=== PATIENT | female | born 1960 | race Caucasian/White ===

== ENCOUNTER → 2022-09-27 14:58 | Outpatient (CLI) | payer OTHER, SELFPAY ==
--- NOTE | 2022-09-27 15:09 | DI.CT.S_ITS ---
PROCEDURE: CT LUMBAR SPINE WO CON INDICATIONS: Spinal stenosis, lumbar region with neurogenic claudication TECHNIQUE: Noncontrast 3 mm thick sections acquired from the T12 level to the sacrum. Sagittal and coronal reformats were constructed. For radiation dose reduction, the following was used: automated exposure control. COMPARISON: None. FINDINGS: Image quality: Excellent. Bones: There is mild leftward curvature of lumbar spine with apex at L2-3 level. No acute vertebral body compression fractures. No suspicious lytic or blastic bony lesions. No pars defects. T12-L1: Loss of disc height and degenerative endplate changes are seen with vacuum disc phenomenon. Small dorsal disc osteophyte complex formation and bilateral facet arthrosis is noted with mild central canal stenosis, no significant neural foraminal narrowing. L1-L2: Loss of disc height and degenerative endplate changes are seen. Dorsal disc osteophyte complex formation and bilateral facet arthrosis is noted causing mild central canal stenosis and left worse than right bilateral neural foraminal narrowing. L2-L3: Loss of disc height, degenerative endplate changes and vacuum disc phenomenon is seen. Dorsal disc osteophyte complex formation and bilateral facet arthrosis with hypertrophy of ligamentum flavum causing [id number] central canal stenosis and right worse than left bilateral neural foraminal narrowing. L3-L4: Loss of disc height and degenerative endplate changes are seen with vacuum disc phenomenon. Dorsal disc osteophyte complex formation and bilateral facet arthrosis is seen with hypertrophy of ligamentum flavum causing moderate central canal stenosis and bilateral neural foraminal narrowing worse on the right side. L4-L5: Degenerative endplate changes are seen. Broad-based disc bulge and bilateral facet arthrosis is seen with hypertrophy of ligamentum flavum causing moderate central canal stenosis and bilateral neural foraminal narrowing. L5-S1: Mild degenerative endplate changes are noted. Broad-based disc bulge and bilateral facet arthrosis is seen. No significant canal stenosis or neural foraminal narrowing. Soft tissues: No retroperitoneal masses or hematomas. Visualized aorta is normal in caliber. IMPRESSION: 1. Mild levoscoliosis centered at L2-3 level. No acute compression fracture or spondylolisthesis. No suspicious bony lesions. 2. Degenerative disc disease and bilateral facet arthrosis throughout lumbar spine causing various degrees of central canal stenosis and bilateral neural foraminal narrowing as described above. Dictated by: Jose Rivera M.D. on 09/27/2022 at 16:59 Approved by: Jose Rivera M.D. on 09/27/2022 at 17:08
== END ==
PROVIDERS: PCP Family Medicine; Referring Provider Orthopaedic Surgery Orthopaedic Surgery of the Spine; Visit Provider Orthopaedic Surgery Orthopaedic Surgery of the Spine
DX: M48.062 Spinal stenosis, lumbar region with neurogenic claudication (principal); M51.36 Other intervertebral disc degeneration, lumbar region; M51.37 Other intervertebral disc degeneration, lumbosacral region; M47.816 Spondylosis without myelopathy or radiculopathy, lumbar region; M47.817 Spondylosis without myelopathy or radiculopathy, lumbosacral region; M41.9 Scoliosis, unspecified
CPT/HCPCS: 72131

== ENCOUNTER 2022-12-04 07:40 | Inpatient (IN) | payer OTHER, SELFPAY ==
[2022-11-29 11:48] VITALS: BMI 39.0
[2022-12-04] VITALS (13 sets, daily range): BP systolic 105–136; BP diastolic 57–82; PULSE 62–84; RESP 10–20; TEMP 35.9–36.5; O2SAT 89–99; BMI 39.0
[2022-12-04] MEDS: LACTATED RINGERS 1,000 ML 42 ML IV ×2 (08:24→10:49)
[2022-12-04] MEDS: ACETAMINOPHEN 325 MG TABLET 975 MG PO (08:25)
[2022-12-04] MEDS: VANCOMYCIN 1,000 MG/200 ML PIGGYBACK 200 MG IV ×2 (08:34→20:07)
--- NOTE | 2022-12-04 08:56 | PM.PREOP ---
Pre-operative Note Interval Note History & Physical reviewed/Exam performed by Physician: Yes Changes to H&P: No
--- NOTE | 2022-12-04 09:40 | SUR.OPER ---
Room was prepared for surgery and patient had interview with Dr. Giron. I notified Dr. Giron about H&P since it didn't indicate the levels and
--- NOTE | 2022-12-04 09:52 | SUR.OPER ---
Prone on spine table, head in foam head support, padded chest and pelvic supports, gel pad at knees, lower legs supported by pillows; nipples, genitalia and toes free of pressure, arms secured on foam padded arm boards at <90 degrees abduction. Tape over blanket at thigh secured to table.
[2022-12-04] MEDS: BUPIVACAINE LIPOSOME 266 MG/20 ML VIAL INJ (10:48)
[2022-12-04] MEDS: BUPIVACAINE 0.25% (PF) 60 ML, EPINEPHrine 0.15 MG INJ (10:49)
--- NOTE | 2022-12-04 11:00 | SUR.OPER ---
This morning, patient spoke with Dr. Giron and signed consent paperwork for surgery. I discussed with Dr. Giron that the H&P (while up to date) did not include levels indicated for surgery. His most recent H&P also stated the patient was uncertain if this surgery would happen. He has been made aware and stated that he intends to leave the H&P on 11/19 as the appropriate documentation for the surgery on 12/04/2022.
--- NOTE | 2022-12-04 12:00 | DI.RAD.S_ITS ---
PROCEDURE: XR LUMBAR SPINE 2-3V INDICATIONS: L3-4, L4-5 TLIF ROWBOT TECHNIQUE: Low resolution intraoperative fluoroscopic spot films were obtained COMPARISON: None. FINDINGS: Three low resolution intraoperative fluoroscopic spot films were obtained during L3-4 and L4-5 discectomy and fusion with posterior roosevelt and screw instrumentation. IMPRESSION: Fluoroscopic guidance Approved by: Saravanan Gregorio M.D. on 12/04/2022 at 18:09
--- NOTE | 2022-12-04 12:58 | PM.OP.1 ---
Operative Date/Time/Diagnoses Date of procedure: 12/04/22 Time of procedure: 08:40 Pre-op diagnosis: 1. L3-4, L4-5 spondylolisthesis 2. L3-4, L4-5 spinal stenosis with neurogenic claudication Post-op diagnosis: same Procedure & Clinicians Procedure: 1. L3-4, L4-5 Postero-lateral and posterior interbody fusion 2. L3-4, L4-5 interbody cage placement. 3. L3-4, L4-5 decompressive laminectomy with bilateral facetecomies 4. L3-4, L4-5 Posterior segmental instrumentation 5. Varna of bone marrow from iliac crest 6. Utilization of microsurgical technique and operating microscope 7. Utilization of robotic assisted navigation Same procedure as scheduled: Yes Indications: Patient has been having chronic back pain and worsening lumbar radiculopathy and symptoms of neurogenic claudication. Patient failed multiple conservative management with worsening pain weakness and numbness in her lower extremity. Patient has been having difficulty performing activity of daily living. After discussing risks benefits of treatment options, patient elected proceed with surgery. Surgeon: Raghavendra Giron Regional Education Manager: Barbara Handy Click Yes if Unassisted: No Anesthesia Type: General Operative Notes Closure Type: primary Specimen(s): none sent Applied: catheter Estimated Blood Loss (mL): 100 Blood products transfused: none Procedure in detail: Patient was seen in the preoperative area. Risks and benefits of the surgery was discussed with the patient. Informed consent was obtained from the patient and placed in the chart. Surgical site was marked. Patient was taken to the operative room. General anesthesia was administered. Prophylactic antibiotic was given to the patient less than 30 min before the incision was made. Patient was placed into a prone position on the Luis table. Patient's back was then prepped and draped in the sterile fashion. Time-out was performed at this time. After patient was prepped and draped, patient's PSIS was palpated and marked bilaterally. Small 1 cm incision was made over the PSIS for placement of the reference probes. Two trocar was placed into the PSIS 1 on each side. The reference probe was attached to the trocar of the reference apparatus. At this time the C-arm imaging was used to confirm AP and lateral of L3, L4-L5 vertebrae and merged the C-arm imaging using the [employer] robotic navigation system with the CT of the lumbar spine. After successful merging was completed and confirmed, skin marker was used to erika out the skin incision using the [employer] robotic arm. Bilateral incision was made at this time. Pre templated trajectory was used and guided using the [employer] robotic navigation system for bilateral L3 L4, L5 pedicle screw placement. This was done by using the robotic arm to guide the high-speed bur to make a cortical entry point. Next a drill was placed also using the robotic arm and guided using the navigation system drilling partially through bilateral L3, L4, L5 pedicles. Next L3, L4, L5 pedicle screws it was pre templated and measured was placed onto the power vacuum truck driver and inserted into the pedicles bilaterally. After all 6 screws were placed C-arm imaging was taken of both AP and lateral to confirm the placement. Excellent placement of the screws were confirmed and a matched precisely with the pre planned screw placement using the navigation system. MARs retractor was inserted using [employer] guidence. Globus MARS retractors was placed inside the incision and docked onto the L3, L4 lamina. Using microsurgical technique and operating microscope, a L3, L4 laminectomy and L3-4, L4-5 facetectomy was performed using a Kerrison rongeur. The laminectomy and facetectomy was performed in order to decompress patient's cauda equina as well as the nerve roots exiting at the L3-4, L4-5 level. Patient was found have severe lateral recess and neural foramen stenosis which was fully decompressed after the laminectomy facetectomy. More than 75% of the facets were removed during the process of decompression rendering L3-4, L4-5 level grossly unstable and required a fusion procedure at the same time. The disc space at L3-4, L4-5 was identified, and a total diskectomy was performed at L3-4, L4-5 level. The endplates were decorticated using a rasp and shaver. The total diskectomy and decortication was performed at L3-4, L4-5 level in order to to accomplish a L3-4, L4-5 fusion. The local bone from the laminectomy and facetectomy was saved for local bone grafting. After the total diskectomy and decortication was completed, Trifecta bone graft material was combined with local bone that was harvested earlier. At this time, a separate skin is incision was made over the iliac crest. A Jamshidi needle was inserted into the iliac crest through a separate skin incision. 5 cc of bone marrow aspiration was obtained through the separate skin incision using a Jamshidi needle from the iliac crest. The bone marrow aspiration was combined with local bone and the DBM bone grafting material. The bone grafting material was placed into the L3-4, L4-5 interbody space along with expandable cages. One cage each was inserted into the L3-4 L4-5 interbody space along with bone graft material. The cage was expanded to its maximum height using the torque limiting screwdriver. The disc preparation as well as the cage insertion were also performed under navigation guidance. After the cage was placed, AP and lateral C-arm imaging was taken to confirm placement of the cage and excellent position was confirmed. Globus MARS retractor was inserted and docked onto the L3-4, L4-5 posterolateral gutter on the right side. Using the power drill, posterior-lateral decortication was performed at L3-4, L4-5 level until bleeding cortical bone was identified. The remaining bone grafting material was placed into the L3-4, L4-5 posterior lateral gutter he order to accomplish posterolateral fusion at the L3-4, L4-5 level. At this time the tulips were attached to the L3, L4-L5 pedicle screw shanks. After measuring the length of the rods, they were inserted into the tulips of the pedicle screws and locked in place using locking caps and torque limiting screwdriver bilaterally. Total 6 caps and 2 titanium rods was used in order to complete the posterior instrumentation construct. After all the hardware was placed, and confirmed with AP and lateral C-arm imaging, the wound was then irrigated with sterile normal saline and packed with Ray-Nathalia gauze for 3 min to accomplish hemostasis. After the gauze was removed the deep fascia was closed with #1 Vicryl suture. The subcutaneous layer was closed with 2-0 Vicryl. The skin was closed with skin beau. Patient tolerated the procedure well. There were no complications. Neuro monitoring system was used to monitor patient's neurologic status throughout entire procedure. There was no disturbance of the neural monitoring signals throughout the case. Complications: none Post-operative Condition: stable Disposition: PACU Plan for aftercare: Admit to inpatient hospital
[2022-12-04] MEDS: OXYCODONE IR 5 MG TABLET PO (13:35)
[2022-12-04] MEDS: MORPHINE 10 MG/ML INJ IV ×2 (13:38→13:45)
[2022-12-04] MEDS: ACETAMINOPHEN 325 MG TABLET 650 MG PO ×2 (14:37→21:06)
[2022-12-04] MEDS: GABAPENTIN 600 MG TABLET PO ×2 (14:37→20:06)
[2022-12-04] MEDS: TRAMADOL 50 MG TABLET PO ×2 (14:37→20:05)
[2022-12-04] MEDS: LACTATED RINGERS 1,000 ML 125 ML IV (14:37)
[2022-12-04] MEDS: OXYCODONE IR 10 MG TABLET PO ×3 (14:54→21:07)
--- NOTE | 2022-12-04 16:10 | PT.IIE ---
Current Diagnoses Spondylolisthesis, lumbar region (12/04/22) Spinal stenosis, lumbar region with neurogenic claudication (12/04/22) Surgery Performed Operation Date: 12/04/22 08:45 Actual Procedures p L3-4, L4-5 TLIF with posterior instrumentation-Robot - Raghavendra Giron MD Surgical History (Last Updated 11/29/22 @ 13:28 by Mishel Finch, RN) History of bilateral carpal tunnel release History of cervical spinal surgery History of foot surgery History of lateral meniscus repair of left knee History of surgery Medical History (Last Updated 11/29/22 @ 13:43 by Mishel Finch, RN) Depression GERD (gastroesophageal reflux disease) History of anxiety History of asthma History of broken collarbone History of fibromyalgia History of high cholesterol History of spinal stenosis Pre-diabetes Spondylolisthesis Physical Therapy Inpatient Evaluation/Re-Eval M1 PT/OT-IP Prior Functional Status Start: 12/04/22 16:54 Freq: NEEDED Status: Active Protocol: Document 12/04/22 16:54 ED (Rec: 12/04/22 17:13 ED [id number]) Medical Review Prior Functional Status Medical History Reviewed Yes Communication able to express all needs Mobility and Gait Ambulated c/o assistive device inside home. Used electric cart at grocery stores. Reported history of falls and LE weakness; slowly declining functional mobility secondary to back pain and LE weakness Activities of Daily Living and IADL's independent with ADLs and IADLs Social History Household Members spouse Living Arrangements House Number of Floors (Floors) One Floor Number of Stairs To Enter/Railing? 6 Home Equipment Four Wheel Walker,Grab Bars Near Toilet M2 PT-IP Current Condition Start: 12/04/22 16:54 Freq: NEEDED Status: Active Protocol: Document 12/04/22 16:54 ED (Rec: 12/04/22 17:13 ED [id number]) Physical Therapy Current Condition Current Condition Evaluation Date 12/04/22 Treatment Diagnosis s/p L3-L5 TLIF Onset Date 12/04/22 M3 PT-IP Subjective Start: 12/04/22 16:54 Freq: NEEDED Status: Active Protocol: Document 12/04/22 16:54 ED (Rec: 12/04/22 17:13 ED [id number]) Subjective Physical Therapy Visit Type Type Initial Evaluation Visit Start Time 16:00 Visit Stop Time 16:50 Total Visit Minutes 50 Physical Therapy Visit Comments Patient Comments Pt lives in [place] with who is able to help her. She reports steadily declining functional mobility over the past year d/t back pain and LE weakness. She has a history of falls and states that it's due to her just losing balance and doesn't offer additional details into the falls. She owns a 4WW that she used before but doesn't use anymore. She ambulates inside the home w/o AD but will use an electric cart when she goes to the grocery store . She reports 6 stairs to get into the house with 2 railings but she will only be able to use 1 side as the stairs are wide. Patient Goals Return home and gain strength back. Have no back pain Therapy Pain Assessment Pain When Pain Assessed At Rest Pain Present Pain Present Pain Reported Location Back Intensity 6 Scale Used Numeric (0 - 10) Description Aching,Spasm Pain Management Techniques Re-positioning,Timing of Activity with Medications M4 PT-IP Mobility and Gait Start: 12/04/22 16:54 Freq: NEEDED Status: Active Protocol: Document 12/04/22 16:54 ED (Rec: 12/04/22 17:13 ED [id number]) PT-Bed Mobility Assessment Rolling Type of Rolling Log Rolling,Roll to Right Level of Assist Minimal Assistance Supine to Sit Supine to Sit Moderate Assistance Sit to Supine Sit to Supine Moderate Assistance Scooting Scooting to Edge of Bed Minimal Assistance Scooting Up and Down in Bed Minimal Assistance PT-Transfer Assessment Sit to and From Stand Sit to and from Stand Moderate Assistance Equipment Transfer Assistive Device Standard Walker Orthotic/Prosthetic Devices or Brace: No Comments Mobility Comments did not transfer today. Pt limited in standing tolerance and overall lethargy PT-Balance Assessment Sitting Balance and Reactions Static Sitting Balance Ability Fair Standing Balance and Reactions Static Standing Balance Ability Fair M5 PT-IP Objective Assessments Start: 12/04/22 16:54 Freq: NEEDED Status: Active Protocol: Document 12/04/22 16:54 ED (Rec: 12/04/22 17:13 ED [id number]) Orientation Orientation/Cognition Level of Alertness Lethargic Orientation Name,Date,Place,Situation Language Function Ability No Deficits Noted Safety Awareness Understands Safety Issues Memory Description No Deficits Noted Gross Range of Motion Upper Extremity ROM Assessment Within Functional Limits Lower Extremity ROM Assessment Within Functional Limits Strength Upper Extremity Strength Assessment Within Functional Limits Lower Extremity Strength Assessment Within Functional Limits Comments Strength Comments able to move LEs through full ROM in bed c/o assistance Coordination Assessment Gross Coordination Gross Coordination WNL Sensation Assessment Sensation Gross Sensation WNL Muscle Tone Muscle Tone WNL Yes M6 PT-IP Treatment Start: 12/04/22 16:54 Freq: NEEDED Status: Active Protocol: Document 12/04/22 16:54 ED (Rec: 12/04/22 17:13 ED [id number]) Physical Therapy Treatment Exercises Exercises Ankle Pumps,Quad Sets Education Education Provided Precautions,Post-Op Packet, Safety Equipment Issued Equipment Type and Company FWW Other Treatments Other Treatment Performed log roll to the R c/ railing s/l > sitting EOB mod A x2 sit<>stands CGA ~30'' standing FWW CGA M7 PT-IP Assessment and Plan Start: 12/04/22 16:54 Freq: NEEDED Status: Active Protocol: Document 12/04/22 16:54 ED (Rec: 12/04/22 17:13 ED [id number]) PT Summary Assessment and Plan Potential Rehabilitation Potential Good Status of Condition at Evaluation Stable Summary Impairments Pain,Strength,Balance,Bed Mobility,Transfers,Gait, Activity Tolerance Assessment Summary Pt is s/p L3-L4, L4-L5 TLIF on 12/04/22. She lives in [facility] c/ her spouse who is able to help her at home and with mobility. PT educated patient and spouse on post- surgical precautions including no bending or twisting and no lifting greater than 10#; PT encouraged patient and spouse to go through packet together. Pt has 4WW at home and a grab bar near the toilet. Pt has 6 stairs to enter with bilateral railings but she can only use one d/t width of staircase. Pt required mod A for bed mobility today and tactile/verbal cues for appropriate log roll technique . Pt was able to perform 2x1 sit <> stand from bed c/o physical assistance but did require FWW for UE support and balance. Pt performed short duration of standing marches using FWW CGA. Pt limited in activity tolerance today and fatigued by end of session. Required mod A for LE management when performing EOB > sidelying. Pain seems to be well controlled and she reported no increase in pain with activity today. Pt returned to bed with call- light within reach; they had no further questions at conclusion of PT. Goals Bed Mobility Goal Standby Assistance Transfer Goal Standby Assistance Gait Goal Standby Assistance Gait Distance 75 feet using FWW SBA Other Goals negotiate 6 steps using single railing CGA - min A Days to Meet Goals 3 Frequency of Treatment Frequency Of Treatment Twice a Day Treatment Plan Physical Therapy Treatment Plan Bed Mobility Training,Transfer Training,Gait Training, Therapeutic Exercise,Post Op Education,Discharge Planning, Neuromuscular Re-ed Precautions Lumbar Precautions Log Roll,No Twisting,Limit Bending,Lifting Restriction of 10 lbs,Gait Belt above Incisional Area Weight Bearing Status Weight Bearing Status Full Weight Bearing Recommendations To Nursing Amount of Assist Needed 1 Person Assist Discharge Recommendations PT Discharge Recommendations Home Health Transportation Needs at Discharge Private Vehicle
[2022-12-04] MEDS: ALBUTEROL 2.5 MG/3 ML NEB (ADULT) INH ×2 (19:15→22:10)
[2022-12-04] MEDS: DOCUSATE 100 MG CAPSULE PO (20:04)
[2022-12-04] MEDS: SENNOSIDES 8.6 MG TABLET 17.2 MG PO (20:06)
[2022-12-04] MEDS: LORazepam 1 MG TABLET PO (20:06)
[2022-12-05] MEDS: ONDANSETRON 4 MG/2 ML INJ IV (02:22)
[2022-12-05] MEDS: ACETAMINOPHEN 325 MG TABLET 650 MG PO ×4 (02:23→21:15)
[2022-12-05] MEDS: OXYCODONE IR 10 MG TABLET PO ×6 (02:23→21:14)
[2022-12-05] MEDS: LACTATED RINGERS 1,000 ML 125 ML IV ×3 (02:23→18:27)
[2022-12-05] MEDS: PANTOPRAZOLE DR 40 MG TABLET PO (05:22)
[2022-12-05] MEDS: TRAMADOL 50 MG TABLET PO ×3 (05:27→18:28)
[2022-12-05 05:52] LABS: Hematocrit 33.2 % (36-46)
--- NOTE | 2022-12-05 07:15 | PM.PNPO.1 ---
Subjective Subjective Date Patient Seen: 12/05/22 Time Patient Seen: 07:15 Interval history: Pt resting comfortably in bed, c/o poor sleep d/t back, buttock, and lateral thigh pain. C/o pain w/ PT yesterday. Exam Vital Signs (past 8 hours): Oxygen Delivery Method Nasal Cannula Oxygen Flow Rate 1 Narrative Exam Narrative: 5/5 strength in hip flexors, quadriceps, hamstrings, DF, PF, EHL bilaterally. Sensation to light touch intact throughout BLE. Calves soft, compressible, nontender. Dressing placed intraoperatively saturated with dilute bloody drainage. Objective Labs 12/05/22 05:25 Labs: Laboratory Results - last 24 hr 12/05/22 05:25 Hgb 11.0 L Hct 33.2 L PFSH Medical History (Updated 11/29/22 @ 13:43 by Mishel Finch RN) History of broken collarbone History of anxiety Pre-diabetes History of asthma History of fibromyalgia History of spinal stenosis Spondylolisthesis History of high cholesterol GERD (gastroesophageal reflux disease) Depression Surgical History (Updated 12/05/22 @ 07:55 by Barbara Handy PA-C) History of surgery History of lateral meniscus repair of left knee History of foot surgery History of bilateral carpal tunnel release History of cervical spinal surgery Social History household members: spouse Smoking Status: Never smoker alcohol intake: current Assessment & Plan Post-op Assessment and plan (1) S/P lumbar fusion: Assessment and Plan narrative: Continue multimodal pain control and inpt PT. D/c welch, change dressing. Likely discharge home tomorrow. Postoperative Procedures: Procedures Operation Date: 12/04/22 08:45 Actual Procedure Side Surgeon p L3-4, L4-5 TLIF with posterior instrumentation-Robot Raghavendra Giron MD Postoperative day: 1
[2022-12-05 07:33] VITALS: PULSE 73; RESP 16; O2SAT 97
[2022-12-05] MEDS: BUDESONIDE 0.5 MG/2 ML NEB INH ×2 (07:33→19:32)
[2022-12-05] MEDS: ALBUTEROL 2.5 MG/3 ML NEB (ADULT) INH ×4 (07:33→19:32)
[2022-12-05] MEDS: VANCOMYCIN 1,000 MG/200 ML PIGGYBACK 200 MG IV (07:52)
[2022-12-05 08:00] VITALS: BP 107/48; PULSE 75; RESP 16; TEMP 37.4; O2SAT 96
[2022-12-05] MEDS: LORazepam 1 MG TABLET PO ×2 (08:19→21:14)
[2022-12-05] MEDS: CITALOPRAM 10 MG TABLET 30 MG PO (08:19)
[2022-12-05] MEDS: GABAPENTIN 600 MG TABLET PO ×3 (08:19→21:15)
[2022-12-05] MEDS: buPROPion XL 150 MG TAB 300 MG PO (08:20)
[2022-12-05] MEDS: ATORVASTATIN 20 MG TABLET PO (08:20)
[2022-12-05] MEDS: DOCUSATE 100 MG CAPSULE PO ×2 (08:20→21:15)
--- NOTE | 2022-12-05 09:02 | PT.IPTN ---
Current Diagnoses Spondylolisthesis, lumbar region (12/04/22) Spinal stenosis, lumbar region with neurogenic claudication (12/04/22) Arthrodesis status (12/04/22) Surgery Performed Operation Date: 12/04/22 08:45 Actual Procedures p L3-4, L4-5 TLIF with posterior instrumentation-Robot - Raghavendra Giron MD Physical Therapy Treatment Note M2 PT-IP Current Condition Start: 12/04/22 16:54 Freq: NEEDED Status: Active Protocol: Document 12/05/22 08:41 SP (Rec: 12/05/22 13:01 SP [id number]) Physical Therapy Current Condition Current Condition Evaluation Date 12/04/22 Treatment Diagnosis s/p L3-L5 TLIF Onset Date 12/04/22 M3 PT-IP Subjective Start: 12/04/22 16:54 Freq: NEEDED Status: Active Protocol: Document 12/05/22 08:41 SP (Rec: 12/05/22 13:01 SP [id number]) Subjective Physical Therapy Visit Type Type Treatment Note Visit Start Time 08:41 Visit Stop Time 09:02 Total Visit Minutes 21 Notes OT in room as needed for support, not needed. Number of PAID SEARCH MARKETING ANALYST Visits 1 Physical Therapy Visit Comments Patient Comments Pt agreeable to working with therapy upon 2nd attempt, earlier requested return after premedicated. Patient Goals Return home and gain strength back with her to assist her. Have no back pain Therapy Pain Assessment Pain When Pain Assessed During Mobility Pain Present Pain Present Pain Reported Location Back Intensity 7 Scale Used Numeric (0 - 10) Description Aching,Spasm,Tightness,With Movement Pain Behaviors Facial Grimacing Pain Management Techniques Distraction,Modification of Treatment,Re-positioning, Timing of Activity with Medications M4 PT-IP Mobility and Gait Start: 12/04/22 16:54 Freq: NEEDED Status: Active Protocol: Document 12/05/22 08:41 SP (Rec: 12/05/22 13:01 SP [id number]) PT-Bed Mobility Assessment Rolling Type of Rolling Log Rolling,Roll to Right Level of Assist Standby Assistance,Contact Guard Assistance Supine to Sit Supine to Sit Moderate Assistance,1 Person Assistance,Bedrails Scooting Scooting to Edge of Bed Standby Assistance PT-Transfer Assessment Sit to and From Stand Sit to and from Stand Contact Guard Assistance,Use of Upper Extremities Equipment Transfer Assistive Device Gait Belt,Front Wheeled Walker Orthotic/Prosthetic Devices or Brace: No Transfers Transfer Destination Chair Transfer Technique stand step pivot transfer Transfer Ability Level of Assist Contact Guard Assistance Comments Mobility Comments Pt recalled 1/3 precautions keep back straight when I move . PAID SEARCH MARKETING ANALYST education on performance with no BLT. She completed log roll to L heavy BUE on bed rail (doesn't have at home on bed), able perform SBA/CGA including BLEs self to EOB, slow to mobilitize due to weakness and back pain 09/09 , premedicated. L SL>sit Mod A to pull from therapist hand while pushing on bed (rail) to self right trunk. Scoot to EOB SBA, takes multiple rest breaks for breath and pain control support. STS CGA, cues to push from bed, stable BLEs but alot effort noted coming to full extension. Stand step pivot transfer bed>chair w/ FWW Moderate BUE WB onFWW, cues for full pivot back with FWW completely then reach back , slow descent hip hinge sit in chair Min A. OT took over pt care, provided added pillow behind back for proper spinal alignment and verbalized will secure all pt needs before leaving. Gait Assessment Comments Gait Comments stand step pivot transfer EOB 2 ft w/ FWW, CGA only tolerated. Stair Climbing Assessment Comments Stair Climbing Comments unable to tolerate standing very long due to pain and decreased stand , will need to assess 6 stairs 1 HR (wide rail at home enterance). PT-Balance Assessment Sitting Balance and Reactions Static Sitting Balance Ability Good Dynamic Sitting Balance Ability Fair Standing Balance and Reactions Static Standing Balance Ability Good Dynamic Standing Balance Ability Fair Device Used FWW M5 PT-IP Objective Assessments Start: 12/04/22 16:54 Freq: NEEDED Status: Active Protocol: Document 12/04/22 16:54 ED (Rec: 12/04/22 17:13 ED [id number]) Orientation Orientation/Cognition Level of Alertness Lethargic Orientation Name,Date,Place,Situation Language Function Ability No Deficits Noted Safety Awareness Understands Safety Issues Memory Description No Deficits Noted Gross Range of Motion Upper Extremity ROM Assessment Within Functional Limits Lower Extremity ROM Assessment Within Functional Limits Strength Upper Extremity Strength Assessment Within Functional Limits Lower Extremity Strength Assessment Within Functional Limits Comments Strength Comments able to move LEs through full ROM in bed c/o assistance Coordination Assessment Gross Coordination Gross Coordination WNL Sensation Assessment Sensation Gross Sensation WNL Muscle Tone Muscle Tone WNL Yes M6 PT-IP Treatment Start: 12/04/22 16:54 Freq: NEEDED Status: Active Protocol: Document 12/05/22 08:41 SP (Rec: 12/05/22 13:01 SP [id number]) Physical Therapy Treatment Education Education Provided Precautions,Safety Equipment Issued Equipment Type and Company Pt stated acquired 4WW , wants to trial for proper use/safety to go home with but can get her a FWW if needed. M7 PT-IP Assessment and Plan Start: 12/04/22 16:54 Freq: NEEDED Status: Active Protocol: Document 12/05/22 08:41 SP (Rec: 12/05/22 13:01 SP [id number]) PT Summary Assessment and Plan Potential Rehabilitation Potential Good Status of Condition at Evaluation Stable Summary Impairments Pain,Strength,Balance,Bed Mobility,Transfers,Gait, Activity Tolerance Progress Towards Goals Slow Progress due to Pain,Slow Progress due to Medical Issues,Slow Progress due to Activity Tolerance Assessment Summary Pt demonstrates decreased pain control and strength today. She reports little dizzy during mobility. Bed mob Mod A for trunk righting, STS and transfer CGA with FWW, demonstrated muscle guarding and extra time to mobilize required. Cues for use of BUEs for sit/stand support back spinal alignment and control. Pt unable toprogress further gait and unable assess 6 stairs has at home to enter. Will continue to assess progress this afternoon, CGT at 1300 with . Goals Bed Mobility Goal Standby Assistance Transfer Goal Standby Assistance Gait Goal Standby Assistance Gait Distance 75 feet using FWW SBA Other Goals negotiate 6 steps using single railing CGA - min A Days to Meet Goals 3 Frequency of Treatment Frequency Of Treatment Twice a Day Treatment Plan Physical Therapy Treatment Plan Bed Mobility Training,Transfer Training,Gait Training, Therapeutic Exercise,Post Op Education,Discharge Planning, Neuromuscular Re-ed Other Recommendations and Next Treatment bed mob, transfers w/ FWW, Focus gait and 6 step R HR stair mgt if able to enter home, CGT with 12/05/22 at 1300. Precautions Lumbar Precautions Log Roll,No Twisting,Limit Bending,Lifting Restriction of 10 lbs,Gait Belt above Incisional Area Other Precautions Pt recalls 1/3 precautions: keep back straight. Reviewed no bend, no twist, no lift heavy wt >8lbs. And maintaing during log roll bed and standing mobility. Weight Bearing Status Weight Bearing Status Full Weight Bearing Recommendations To Nursing Amount of Assist Needed 1 Person Assist Discharge Recommendations PT Discharge Recommendations Home with / Assist Available,Home Health Equipment Needed for Home Before FWW if not safe with 4WW Discharge Transportation Needs at Discharge Private Vehicle
--- NOTE | 2022-12-05 10:31 | OT.IP.EVAL ---
Current Diagnoses Spondylolisthesis, lumbar region (12/04/22) Spinal stenosis, lumbar region with neurogenic claudication (12/04/22) Arthrodesis status (12/04/22) Surgery Performed Operation Date: 12/04/22 08:45 Actual Procedures p L3-4, L4-5 TLIF with posterior instrumentation-Robot - Raghavendra Giron MD Past Medical History (Last Updated 11/29/22 @ 13:43 by Mishel Finch, RN) Depression GERD (gastroesophageal reflux disease) History of anxiety History of asthma History of broken collarbone History of fibromyalgia History of high cholesterol History of spinal stenosis Pre-diabetes Spondylolisthesis Surgical History (Last Updated 11/29/22 @ 13:28 by Mishel Finch, RN) History of bilateral carpal tunnel release History of cervical spinal surgery History of foot surgery History of lateral meniscus repair of left knee History of surgery Occupational Therapy Inpatient Evaluation/Re-Eval M1 PT/OT-IP Prior Functional Status Start: 12/04/22 16:54 Freq: NEEDED Status: Active Protocol: Document 12/04/22 16:54 ED (Rec: 12/04/22 17:13 ED [id number]) Medical Review Prior Functional Status Medical History Reviewed Yes Communication able to express all needs Mobility and Gait Ambulated c/o assistive device inside home. Used electric cart at grocery stores. Reported history of falls and LE weakness; slowly declining functional mobility secondary to back pain and LE weakness Activities of Daily Living and IADL's independent with ADLs and IADLs Social History Household Members spouse Living Arrangements House Number of Floors (Floors) One Floor Number of Stairs To Enter/Railing? 6 Home Equipment Four Wheel Walker,Grab Bars Near Toilet M1 PT/OT-IP Prior Functional Status Start: 12/05/22 10:15 Freq: NEEDED Status: Active Protocol: Document 12/05/22 09:40 [facility] (Rec: 12/05/22 10:30 [facility] [id number]) Medical Review Prior Functional Status Medical History Reviewed Yes Communication able to express all needs Mobility and Gait Ambulated c/o assistive device inside home. Used electric cart at grocery stores. Reported history of falls and LE weakness; slowly declining functional mobility secondary to back pain and LE weakness. Per pt has had 5-6 falls in the past 6 months. Activities of Daily Living and IADL's independent with ADLs and IADLs Social History Household Members spouse Living Arrangements House Number of Floors (Floors) One Floor Number of Stairs To Enter/Railing? 6 with bilateral wide rails Home Environment Standard Height Toilet,Walk in Shower Home Equipment Four Wheel Walker,Hand Held Shower,Long Handled Shoe Horn, Can Line Operator,Lift Recliner,Grab Bars Near Toilet M2 OT-IP Current Condition Start: 12/05/22 10:15 Freq: Status: Active Protocol: Document 12/05/22 09:40 [facility] (Rec: 12/05/22 10:30 [facility] [id number]) Occupational Therapy Current Condition Current Condition Evaluation Date 12/05/22 Treatment Diagnosis S/P L3-4, L4-5 TLIF Diagnosis Onset Date 12/04/22 Post Operative Precautions Lumbar Precautions Log Roll,No Twisting,Limit Bending,Lifting Restriction of 10 lbs,Gait Belt above Incisional Area M3 OT- IP Subjective and Pain Start: 12/05/22 10:15 Freq: Status: Active Protocol: Document 12/05/22 09:40 [facility] (Rec: 12/05/22 10:30 [facility] [id number]) OT- Subjective Occupational Therapy Visit Type Type Initial Evaluation Visit Start Time 09:08 Visit Stop Time 09:40 Total Visit Minutes 32 Occupational Therapy Visit Comments Patient Comments Pt agreed to get up. Patient/Caregiver Goals To go home. OT Pain Assessment Pain When Pain Assessed During Mobility Pain Present Pain Present Pain Reported Location Back Intensity 7 Scale Used Numeric (0 - 10) M4 OT- IP ADL's Start: 12/05/22 10:15 Freq: Status: Active Protocol: Document 12/05/22 09:40 [facility] (Rec: 12/05/22 10:30 [facility] [id number]) OT YGQ-[id number]-Plhfths General Evaluation Self-Feeding Ability Independent OT ADL-Grooming General Evaluation Grooming Ability Standby Assistance Areas Needing Assistance Retrieving/Set-up of Grooming Items Comments OT Grooming Comments Able to do while sitting in the recliner. OT ADL-Oral Care General Eval Oral Care Ability Independent Comments Oral Care Comments Educated best to either spit into a cup or hinge at her hips in order to best follow her back precautions. OT ADL-Dressing General Eval Lower Body Dressing Ability Maximum Assistance Comments OT Dressing Comments Able to practice use of LB dressing equipment and suggested to dress her weaker leg first and take out last. OT ADL-Toileting General Evaluation Toileting Ability Total Assistance Areas Needing Assistance Empty Catheter or Colostomy Comments OT Toileting Comments Cuevas in place. Suggested pt stand to wipe and may need toilet paper aid to assist at this time or to assist with hygiene needs. OT ADL-Bathing Comments OT Bathing Comments Pt will benefit from a shower chair. M5 OT- IP IADL's Start: 12/05/22 10:15 Freq: Status: Active Protocol: Document 12/05/22 09:40 [facility] (Rec: 12/05/22 10:30 [facility] [id number]) OT-Instrumental Activities of Daily Living Home Safety Awareness Awareness of Need for Assistance at Home Good Awareness Ability to Problem Solve Emergency Able to Problem Solve Situations Meal Preparation Meal Preparation Caregiver Provides Assist Traffic Signal Mechanic Traffic Signal Mechanic Caregiver Provides Assist M6 OT- IP Functional Cognition Start: 12/05/22 10:15 Freq: Status: Active Protocol: Document 12/05/22 09:40 [facility] (Rec: 12/05/22 10:30 [facility] [id number]) Cognitive Factors Limiting Selfcare Function Cognitive Ability Level of Alertness Alert Patient Orientation Name,Age,Birthday,Month,Date, Year,Day of Week,Place, Situation Attention Span Ability Capable of Focused Attention, Capable of Sustained Attention Ability to Follow Commands Able to Follow One Step Commands Cognitive Comments Cognitive Assessment Comments Pt able to states her precautions and incorporate for ADl and mobility needs. Pt needing cues to push with her hand on surfaces to stand versus pull up on the FWW. OT- Vision and Hearing OT- Hearing Assessment OT- Hearing Assessment WFL OT- Vision Assessment Visual Acuity Glasses All The Time Visual Attentiveness WFL Occular Pursuits WFL M7 OT- IP Mobility and Balance Start: 12/05/22 10:15 Freq: Status: Active Protocol: Document 12/05/22 09:40 [facility] (Rec: 12/05/22 10:30 [facility] [id number]) OT- Bed Mobility Assessment Supine to Sit Supine to Sit Assist Moderate Assistance OT-Transfer Assessment Sit to and From Stand Sit to and from Stand Contact Guard Assistance Transfers Transfer Ability Contact Guard Assistance Technique Transfer Destination Bed,Chair Transfer Technique Stand Step Pivot Devices Transfer Assistive Devices Gait Belt,Front Wheeled Walker Comments Mobility Comments Pt having to pull on the ROBOT PROGRAMMER to assist to get to upright from side lying. Pt CGA to stand to FWW and feeling weak. BP taken standing 94/54 and 94/52 and while seated 97/53. Nursing notified. OT- Balance Assessment Sitting Balance and Reactions Static Sitting Balance Ability Good Dynamic Sitting Balance Ability Good Standing Balance and Reactions Static Standing Balance Ability Fair Dynamic Standing Balance Ability Fair M8 OT- IP Objective Assessments Start: 12/05/22 10:15 Freq: Status: Active Protocol: Document 12/05/22 09:40 [facility] (Rec: 12/05/22 10:30 [facility] [id number]) OT Gross Range of Motion Upper Extremity Range of Motion Assessment Within Functional Limits OT Strength Upper Extremity Strength Assessment Within Functional Limits OT-Muscle Tone Assessment Muscle Tone WNL Yes M9 OT- IP Assessment and Plan Start: 12/05/22 10:15 Freq: Status: Active Protocol: Document 12/05/22 09:40 [facility] (Rec: 12/05/22 10:30 [facility] [id number]) OT Summary Assessment and Plan Potential Rehabilitation Potential Good Analytic Complexity at Evaluation Low Summary OT Impairments Pain,Strength,Balance, Functional Mobility,Dressing, Toileting,Bathing,Toilet Transfers,Shower Transfers, Activity Tolerance Progress Towards Goals Progressing Toward Goals,Slow Progress due to Medical Issues ,Slow Progress due to Activity Tolerance Assessment Summary Pt low complexity and main barriers are pain, a it orthostatic while standing, and will now need assist for bed mobility and ADL needs. Pt has a supportive to assist with her needs. Pt to go home with assist when medically stable. Goals Grooming Goal Independent Dressing Goal Independent Toileting Goal Independent Bathing Goal Independent Toilet Transfer Goal Independent Shower Transfer Goal Independent Patient/Caregiver Education Goal Caregiver Independent Assisting Patient Days to Meet Goals 7 Frequency of Treatment Frequency Of Treatment Once a Day Treatment Plan OT Treatment Plan ADL Training,Functional Mobility,Patient/Family Education,Discharge Planning Discharge Recommendations OT Discharge Recommendations Home with Assistance Home Equipment Needs BSC, FWW?, LB dressing equipment Transportation Needs at Discharge Private Vehicle
[2022-12-05] MEDS: hydrOXYzine pamoate 25 MG CAPSULE PO ×2 (10:50→15:39)
[2022-12-05 11:04] VITALS: PULSE 75; RESP 16; O2SAT 96
--- NOTE | 2022-12-05 13:45 | PT.IPTN ---
Addendum entered and electronically signed by Ingrid Cole PTA 12/05/22 14:59: Caregiver training changed to 11am 12/06 with SIMON Quintero. Original Note: Current Diagnoses Spondylolisthesis, lumbar region (12/04/22) Spinal stenosis, lumbar region with neurogenic claudication (12/04/22) Arthrodesis status (12/04/22) Surgery Performed Operation Date: 12/04/22 08:45 Actual Procedures p L3-4, L4-5 TLIF with posterior instrumentation-Robot - Raghavendra Giron MD Physical Therapy Treatment Note M2 PT-IP Current Condition Start: 12/04/22 16:54 Freq: NEEDED Status: Active Protocol: Document 12/05/22 13:10 SP (Rec: 12/05/22 14:47 SP [id number]) Physical Therapy Current Condition Current Condition Evaluation Date 12/04/22 Treatment Diagnosis s/p L3-L5 TLIF Onset Date 12/04/22 M3 PT-IP Subjective Start: 12/04/22 16:54 Freq: NEEDED Status: Active Protocol: Document 12/05/22 13:10 SP (Rec: 12/05/22 14:47 SP [id number]) Subjective Physical Therapy Visit Type Type Treatment Note Visit Start Time 13:10 Visit Stop Time 13:45 Total Visit Minutes 35 Notes in room when arrived, initiated CGT including bed mobility, transfer and gait support needed. Improved LUE automated BPs: supine: 103/55 HR 80 seated: 118/58 HR 87 standing post mobility: 114/56 HR 78. Number of BAND TACKER Visits 2 Physical Therapy Visit Comments Patient Comments Pt reports just got back into bed with nursing from using the bathroom, willing to mobilize with PT but doesn't think will do alot and not able to try stairs yet with pain having. Patient Goals Return home with to assist her. Therapy Pain Assessment Pain When Pain Assessed At Rest Pain Present Pain Present Pain Reported Location Back Intensity 7 Scale Used at rest 8/10 with mobility. Description Pressure,Spasm,Tightness,With Movement Pain Behaviors Facial Grimacing,Guarding, Wincing Pain Management Techniques Distraction,Modification of Treatment,Re-positioning, Timing of Activity with Medications M4 PT-IP Mobility and Gait Start: 12/04/22 16:54 Freq: NEEDED Status: Active Protocol: Document 12/05/22 13:10 SP (Rec: 12/05/22 14:47 SP [id number]) PT-Bed Mobility Assessment Rolling Type of Rolling Log Rolling,Bilateral Level of Assist Standby Assistance,Contact Guard Assistance Supine to Sit Supine to Sit Moderate Assistance,1 Person Assistance,Bedrails Sit to Supine Sit to Supine Moderate Assistance,1 Person Assistance,Bedrails Scooting Scooting to Edge of Bed Standby Assistance,Contact Guard Assistance PT-Transfer Assessment Sit to and From Stand Sit to and from Stand Standby Assistance,Contact Guard Assistance,1 Person Assistance,Use of Upper Extremities Equipment Transfer Assistive Device Gait Belt,Front Wheeled Walker Orthotic/Prosthetic Devices or Brace: No Transfers Transfer Destination Bed Transfer Technique pt ambulate around bed w/ FWW Transfer Ability Level of Assist Contact Guard Assistance Comments Mobility Comments Pt R log roll use of bed rails , self BLEs to EOB easier/less time, she pulled from 's hand and push from bed to complete righting trunk to sit , scoot EOB CGA/SBA. Pt CGA to stand to FWW, cued push from bed, improved LE extension into standing this tx. Gait around bed R>L side, slow receiprocal stepping Mod/heavy BUE on FWW CGA via / BAND TACKER managed IV pole. Stand>sit CGA cues for reaching back for slow descent. Sit>L SL > supine Mod A via supporting BLEs, cued stay on side before LR to supine, pt quick transitioned to back, BAND TACKER/ ed perform slower for ab bracing support for spine. I know but my back was hurting to do it to slow. Pt was supine with pillows under BLEs and warm blankets. Bed alarmed and all needs in reach before left. Discussed continue CGT tomorrow 10am for further distance gait and stair mgt assessment for allowance to enter home with . WIll continue to asses progress. Gait Assessment Gait Gait Assistance Required: Contact Guard Assist,1 Person Assist Distance (Feet) 20 Able to Maintain Weight Bearing Status Yes During Gait Assistive Devices Assistive Device Gait Belt,Front Wheeled Walker Orthotic/Prosthetic Devices or Brace: No Gait Deviations General Gait Pattern Decreased Stride Length, Decreased Feet Clearance, Narrow Based Gait Factors Limiting Gait Function Factors Limiting Gait Function Decreased Activity Tolerance, Decreased Strength,Limited Range of Motion,Pain,Poor Safety Awareness Comments Gait Comments see mobility comments Stair Climbing Assessment Comments Stair Climbing Comments unable to tolerate standing very long due to pain, will need to assess 6 stairs 1 HR ( wide rail at home enterance) for success DC home next tx. PT-Balance Assessment Sitting Balance and Reactions Static Sitting Balance Ability Good Dynamic Sitting Balance Ability Good Standing Balance and Reactions Static Standing Balance Ability Good Dynamic Standing Balance Ability Fair Device Used FWW M5 PT-IP Objective Assessments Start: 12/04/22 16:54 Freq: NEEDED Status: Active Protocol: Document 12/04/22 16:54 ED (Rec: 12/04/22 17:13 ED [id number]) Orientation Orientation/Cognition Level of Alertness Lethargic Orientation Name,Date,Place,Situation Language Function Ability No Deficits Noted Safety Awareness Understands Safety Issues Memory Description No Deficits Noted Gross Range of Motion Upper Extremity ROM Assessment Within Functional Limits Lower Extremity ROM Assessment Within Functional Limits Strength Upper Extremity Strength Assessment Within Functional Limits Lower Extremity Strength Assessment Within Functional Limits Comments Strength Comments able to move LEs through full ROM in bed c/o assistance Coordination Assessment Gross Coordination Gross Coordination WNL Sensation Assessment Sensation Gross Sensation WNL Muscle Tone Muscle Tone WNL Yes M6 PT-IP Treatment Start: 12/04/22 16:54 Freq: NEEDED Status: Active Protocol: Document 12/05/22 13:10 SP (Rec: 12/05/22 14:47 SP [id number]) Physical Therapy Treatment Education Education Provided Precautions,Safety Equipment Issued Equipment Type and Company acquired 4WW but stated will go get a FWW for slower pacing in the house before DC. M7 PT-IP Assessment and Plan Start: 12/04/22 16:54 Freq: NEEDED Status: Active Protocol: Document 12/05/22 13:10 SP (Rec: 12/05/22 14:47 SP [id number]) PT Summary Assessment and Plan Potential Rehabilitation Potential Good Status of Condition at Evaluation Stable Summary Impairments Pain,Strength,Balance,Bed Mobility,Transfers,Gait, Activity Tolerance Progress Towards Goals Slow Progress due to Pain,Slow Progress due to Activity Tolerance Assessment Summary Pt continues to be limited by pain and decreased strength during mobility. She reports taking a decrease doze of Gabapentin here vs took at home. She requires Mod A for bed mobility, CGA during transfer and gait w/FWW that was able to provide. She continues decrease standing gait tolerance and unable to assess stair mgt needs to enter home. Will assess during CGT tomorrow 12/06 at 10 am with . Pt reports will see she is premedicated in advance. Will continue to assess progress. Improved vitals more normal values this tx. Recommending Home Assist of and HHPT for progression in strength when pain controlled, assess stair mgt and medically cleared. Goals Bed Mobility Goal Standby Assistance Transfer Goal Standby Assistance Gait Goal Standby Assistance Gait Distance 75 feet using FWW SBA Other Goals negotiate 6 steps using single railing CGA - min A Days to Meet Goals 3 Frequency of Treatment Frequency Of Treatment Twice a Day Treatment Plan Physical Therapy Treatment Plan Bed Mobility Training,Transfer Training,Gait Training, Therapeutic Exercise,Post Op Education,Discharge Planning, Neuromuscular Re-ed Other Recommendations and Next Treatment bed mob, transfers w/ FWW, Focus gait and 6 step R HR stair mgt if able to enter home, CGT with 12/06/22 at 10am. Precautions Lumbar Precautions Log Roll,No Twisting,Limit Bending,Lifting Restriction of 10 lbs,Gait Belt above Incisional Area Other Precautions Recalled 3/3 precautions Weight Bearing Status Weight Bearing Status Full Weight Bearing Recommendations To Nursing Amount of Assist Needed 1 Person Assist Discharge Recommendations PT Discharge Recommendations Home with 24/ Assist Available,Home Health Equipment Needed for Home Before FWW if not safe with 4WW Discharge Transportation Needs at Discharge Private Vehicle
--- NOTE | 2022-12-05 14:17 | CM.DANOTE ---
Initial DCP Assessment Visit Reviewed chart and team rounds for pt's status and initial d/c recommendations. Met with pt/spouse at bedside to introduce self and role. Payor: [facility] VERONICA Adv. Attending: Dr. Giron Pt is a 62 year-old F admited for TLIF surgery w/Dr. Giron. Surgery was completed yesterday, OT therapy today focused on cg training for home d/c. Pain is primary focus at this time. Pt found to be alert, oriented, somewhat anxious re: pain level. Spouse states that he plans to take some time off to care for pt once she d/c's home. OP recommendations for therapies pending pt's progress, her provider states that she will most likely need one more night, and probable d/c tomorrow. DCP will follow and continue to assist with OP recommendations/referrals. Discharge Planning/Care Management CM Discharge Assessment Start: 12/05/22 14:12 Freq: Status: Active Protocol: Document 12/05/22 14:12 DPL (Rec: 12/05/22 14:17 DPL [id number]) Discharge Planning Assessment Assigned Clock Mechanic HAILEY Daigle Advance Directives? No History Provided By Patient,Medical Record Has Patient been admitted in last 30 No days? Prior Living Arrangements House Household Members spouse Type of transporation used prior to Drives own vehicle admit Independent with ADL's Yes Is patient alert and oriented? Yes Comment N/A Caregiver for Another No Comment N/A DME Already Rented / Owned FWW / Walker Comment Also has grab-bars by the toilet. Patient/Family Preference OP PT Therapy Comment Pending recommendations by therapies and Dr. Giron. Barriers to Discharge No Discharge Plan Home Transportation Arrangement Spouse Additional Comment Pending therapies recommendations. Pt will also to f/u OP w/Dr. Giron. If patient plan is home with home health No : Has signed face to face form been completed? Whiteboard Updated in Patient Room with Yes name and ext. # of Clock Mechanic Review Status In Process Please Provide Date Initial DC 12/05/22 Assessment Was Performed Pre-Anesthesia Assessment Start: 11/29/22 11:48 Freq: Status: Complete Protocol: Document 11/29/22 11:48 TC (Rec: 11/29/22 12:00 TC [id number]) Pre-Anesthesia Assessment Patient Information Reviewed Via Chart Review Assessment Completed With Patient Diagnostic Results BMP/CMP,CBC,EKG Comment ordered, results requested Primary Care Provider [place] Medical Clearance Received Not Applicable Seen Specialist in Last 12 Months Yes Specialist Seen Tennis Court Attendant,Orthopedist, Network Project Manager Primary Language Tajik Preferred Language Tajik Commercial Technician Required No Height 167.64 cm Weight 109.769 kg Body Mass Index (BMI) 39.0 Hearing Ability Normal Visual Impairment No Limitations Visual Assist Glasses Dentition Type Teeth, Natural Present Hx Anesthesia Reactions No Hx Family Anesthesia Reaction No Hx Malignant Hyperthermia No Hx Blood Transfusions No Hx Blood Transfusion Reaction No Anesthesia Review Requested No Supervisor Vat House No alcohol intake current alcohol intake frequency a few times a week Smoking Status Never smoker Substance Use Type marijuana Comment edibles Pain Present Pain Reported Musculoskeletal Symptoms Back Pain,Difficulty Walking, Muscle Weakness,Myalgias, Radiating Pain into Limb History of Falling (Recent or History of Yes ) Comment fall onto buttock last winter while running [place] bridge Patient is completely paralyzed or No completely immobile Ambulatory Aid None/bed rest/nurse assist Mental Status Oriented to own ability Comment has walker if needed and will bring with Is patient on oxygen? No Hx Sleep Apnea Yes CPAP/BIPAP use prescribed and used routinely Will Bring CPAP/BIPAP DOS Yes Currently Taking a Beta Zach No Can You Climb a Flight of Stairs Without Yes SOB Hx Chest Pain No Hx SOB No Hx Syncope or Dizziness Yes: had a couple dizzy spells , low BP Anti-Coagulant Therapy No Has a Screen Printer No Cardiac Testing No Hx Pacemaker/ICD No Pacemaker Rep Required? No Cardiac Clearance Received Not Applicable Diet Type At Home Regular Dysphagia No Gastrointestinal Symptoms Reflux Urinary Catheter Present No Hx Urinary Self Catheterization No Diabetes No Patient No Lactating No Hx Drug Resistant Organism No Presence of External or Internal Medical Yes: plate in right collar Devices bone, cervical spine hardware, moris toes Have you had any close contact with No someone diagnosed with COVID-19? Are you experiencing any of these No symptoms symptoms? Evaluation/Screening for possible COVID- Yes 19 infection completed? Received a COVID vaccine? No Marital Status Lives With spouse Current Living Arrangements Mobile home Number of Floors (Floors) One Floor Number of Stairs To Enter/Railing? 3 with railing Support System Family Does the Patient Have Assistance After Yes Surgery Patient Discharge Plan Description Return Home Feels Safe in Current Environment Yes Been Physically Hurt or Threatened By a No Person in Current Environment If Yes, Provider Notified No Do you have thoughts of harming yourself None or others? Are you currently considering suicide? No Do you have a plan to hurt yourself or No Plan others? If Yes, Provider Notified No Do You Have Any Spiritual Beliefs That No May Affect Your HC Choices? Do You Have Any Cultural Practices That No May Affect Your HC Choices? Health Care Proxy/Next of Kin Chinmay (spouse) Health Care Proxy Emergency Contact Name Magi (dtr) Emergency Contact Advance Directives? No Power of Carriage Setter No PAC Instructions Assistance for 24 hours post- op,Bring CPAP/BIPAP,Do not shave/clip surgical site, Durable medical equipment, Medications to take/avoid, Nasal antibiotic,No ETOH/ petroleum product on skin DOS, NPO,Pre-surgical wash,Sturdy shoes/comfortable clothes,Do not bring valuables and remove jewelry Comment pt advised of one to 2 night stay
[2022-12-05 18:30] LABS: Influenza A - CEPHEID Flu A NEGATIVE (NEGATIVE); Influenza B - CEPHEID Flu B NEGATIVE (NEGATIVE)
[2022-12-05 18:31] LABS: COVID-19 CEPHEID PCR (VTM/NP) Negative (Negative)
--- NOTE | 2022-12-05 18:44 | PC.NURSE ---
Day shift: Pt started having flu-like symptoms this evening. Patient states she has chills and body aches. T 100.1. All other Vital signs WNL. Looked at back dressing, CDI, no redness or swelling. Called EDUAR Handy who ordered flu and covid swabs. This RN asked for UA as well. This RN asked about blood cultures, Barbara said not needed at this time. Flu and covid came back negative. UA pending. 2 hours later, patient states she is feeling slightly better. Still experiencing mild chills. Will continue to monitor.
[2022-12-05 18:46] LABS: Appearance Urine UA CLEAR; Bilirubin Urine UA NEGATIVE (NEGATIVE); Color Urine UA YELLOW; Glucose Urine UA NEGATIVE (Negative); Ketones Urine UA NEGATIVE (NEGATIVE); Leukocyte Esterase Urine UA 1+ (NEGATIVE); Nitrite Urine UA NEGATIVE (Negative); Occult Blood Urine UA NEGATIVE (Negative); Protein Urine UA NEGATIVE (Negative); Specific Gravity Urine UA <=1.005 (1.000-1.035); Urobilinogen Urine UA 0.2 E.U./dL (0.2)
[2022-12-05 18:50] LABS: pH Urine UA 5.5 (4.5-8.0)
[2022-12-05 19:00] VITALS: TEMP 37.7
[2022-12-05 19:01] LABS: Bacteria Urine Few (2-10); Culture Indicated Urine Specimen Cultured; RBC Urine 0-1/HPF (0-5/HPF); Squamous Epithelial Cell Urine 0-1 /HPF (0-5/HPF); WBC Urine 5-10/HPF (0-5/HPF)
[2022-12-05 19:34] VITALS: PULSE 70; RESP 16; O2SAT 97
[2022-12-05] MEDS: SENNOSIDES 8.6 MG TABLET 17.2 MG PO (21:16)
[2022-12-05 22:09] VITALS: BP 116/65; PULSE 79; RESP 20; TEMP 36.9; O2SAT 98
[2022-12-06] MEDS: OXYCODONE IR 10 MG TABLET PO ×5 (02:15→21:01)
[2022-12-06] MEDS: ACETAMINOPHEN 325 MG TABLET 650 MG PO ×3 (02:15→21:00)
[2022-12-06] MEDS: LACTATED RINGERS 1,000 ML 125 ML IV (02:16)
[2022-12-06] MEDS: ONDANSETRON 4 MG ODT SL (02:27)
[2022-12-06] MEDS: PANTOPRAZOLE DR 40 MG TABLET PO (06:12)
--- NOTE | 2022-12-06 07:49 | PM.PNPO.1 ---
Subjective Subjective Date Patient Seen: 12/06/22 Time Patient Seen: 07:49 Interval history: Pain has been moderate to severe. No fever chills. No pain with urination. No nausea or vomiting. No shortness of breath or chest pain. Exam Vital Signs (past 8 hours): Fraction of Inspired Oxygen 21 SaO2/FiO2 Ratio 461 Oxygen Delivery Method Room Air Oxygen Flow Rate 0 Narrative Exam Narrative: 62-year-old female resting in bed in no apparent distress. Motor functions intact bilateral lower extremities. Sensation grossly intact to light touch bilateral lower extremities. Const General: cooperative and well developed Nutritional Appearance: obese (BMI is 39.1) Orientation: alert Resp Effort & Inspection: normal respiratory effort and able to speak in complete sentences Objective Labs 12/05/22 05:25 Labs: Laboratory Results - last 24 hr 12/05/22 12/05/22 17:44 18:25 Urine Color Yellow Urine Appearance Clear Urine pH 5.5 Ur Specific [place] <=1.005 Urine Protein Negative Urine Glucose (UA) Negative Urine Ketones Negative Urine Occult Blood Negative Urine Nitrate Negative Urine Bilirubin Negative Urine Urobilinogen 0.2 Ur Leukocyte Esterase 1+ H Urine RBC 0-1/hpf Urine WBC 5-10/hpf H Ur Squamous Epith Cells 0-1 /hpf Urine Bacteria Few (2-10) H Ur Culture Indicated? Specimen cultured SARS-CoV-2 (PCR) Negative Influenza A (RT-PCR) Flu a negative Influenza B (RT-PCR) Flu b negative [facility] Medical History History of broken collarbone History of anxiety Pre-diabetes History of asthma History of fibromyalgia History of spinal stenosis Spondylolisthesis History of high cholesterol GERD (gastroesophageal reflux disease) Depression Surgical History History of surgery History of lateral meniscus repair of left knee History of foot surgery History of bilateral carpal tunnel release History of cervical spinal surgery Social History household members: spouse Smoking Status: Never smoker alcohol intake: current Assessment & Plan Post-op Postoperative Procedures: Procedures Operation Date: 12/04/22 08:45 Actual Procedure Side Surgeon p L3-4, L4-5 TLIF with posterior instrumentation-Robot Raghavendra Giron MD Postoperative day: 2 Postoperative status: doing well and marginal pain control Postoperative plan: routine post-op care Postoperative plan narrative: Mobilize with physical therapy, limit bending, twisting, lifting Multimodal pain management Disposition likely home today or tomorrow
[2022-12-06 08:00] VITALS: BP 119/65; PULSE 76; RESP 19; TEMP 37; O2SAT 95
[2022-12-06] MEDS: polyethylene glycoL 3350 17 GM POWD.PACK PO (08:47)
[2022-12-06] MEDS: buPROPion XL 150 MG TAB 300 MG PO (08:47)
[2022-12-06] MEDS: LORazepam 1 MG TABLET PO ×2 (08:48→21:01)
[2022-12-06] MEDS: DOCUSATE 100 MG CAPSULE PO ×2 (08:48→21:00)
[2022-12-06] MEDS: CITALOPRAM 10 MG TABLET 30 MG PO (08:48)
[2022-12-06] MEDS: GABAPENTIN 600 MG TABLET PO ×3 (08:48→21:01)
[2022-12-06] MEDS: ATORVASTATIN 20 MG TABLET PO (08:49)
[2022-12-06 09:01] VITALS: PULSE 78; RESP 16; O2SAT 97
[2022-12-06] MEDS: BUDESONIDE 0.5 MG/2 ML NEB INH ×2 (09:01→19:47)
[2022-12-06] MEDS: ALBUTEROL 2.5 MG/3 ML NEB (ADULT) INH ×3 (09:01→19:47)
--- NOTE | 2022-12-06 10:27 | PM.DS.1 ---
History of Present Illness History of Present Illness Date Patient Seen: 12/06/22 Time Patient Seen: 07:49 Chief complaint: Back pain Narrative: See progress note Discharge Providers Provider Date of admission: 12/04/22 07:40 Discharge Date: 12/06/22 Primary care physician: Negro Grier MD Consults: 12/04/22 14:17 Consult to Occupational Therapy Evaluate & Treat Comment: Physician Instructions: Evaluate and treat Consult to Physical Therapy Evaluate & Treat Comment: Physician Instructions: Evaluate and Treat Discharge provider: Cole Liang PA-C Summary Hospital Course Discharge Diagnosis: 1. L3-4, L4-5 spondylolisthesis 2. L3-4, L4-5 spinal stenosis with neurogenic claudication Obesity, BMI 39.1 Hospital Course: 1. L3-4, L4-5 Postero-lateral and posterior interbody fusion 2. L3-4, L4-5 interbody cage placement. 3. L3-4, L4-5 decompressive laminectomy with bilateral facetecomies 4. L3-4, L4-5 Posterior segmental instrumentation 5. Jasper of bone marrow from iliac crest 6. Utilization of microsurgical technique and operating microscope 7. Utilization of robotic assisted navigation Same procedure as scheduled: Yes Indications: Patient has been having chronic back pain and worsening lumbar radiculopathy and symptoms of neurogenic claudication. Patient failed multiple conservative management with worsening pain weakness and numbness in her lower extremity. Patient has been having difficulty performing activity of daily living. After discussing risks benefits of treatment options, patient elected proceed with surgery. Surgeon: Raghavendra Giron College Director: Barbara Handy Click Yes if Unassisted: No Anesthesia Type: General Operative Notes Closure Type: primary Specimen(s): none sent Applied: catheter Estimated Blood Loss (mL): 100 Blood products transfused: none Patient admitted to the hospital for the above-mentioned procedure. Patient consented to the same. Patient underwent lumbar fusion December 04, 2022. Patient back in her room recovering well as in stable condition. Multimodal pain management. Limit bending, twisting, lifting. Discharge home today. Status at Discharge Cognitive/behavioral status at discharge: oriented Functional status at discharge: independent ambulation Overall status at discharge: patient is progressing back to baseline Exam Vital Signs (past 8 hours): - 12/06/22 08:00 12/06/22 09:01 Temperature 98.6 F Pulse Rate 76 78 Respiratory Rate 19 16 Blood Pressure 119/65 Pulse Oximetry 95 97 Oxygen Delivery Method Room Air Oxygen Flow Rate 0 0 Fraction of Inspired Oxygen 21 Fraction of Inspired Oxygen 21 SaO2/FiO2 Ratio 461 Oxygen Delivery Method Room Air Oxygen Flow Rate 0 Narrative Exam Narrative: See progress note Objective Labs 12/05/22 05:25 Labs: Laboratory Results - last 24 hr 12/05/22 12/05/22 17:44 18:25 Urine Color Yellow Urine Appearance Clear Urine pH 5.5 Ur Specific [place] <=1.005 Urine Protein Negative Urine Glucose (UA) Negative Urine Ketones Negative Urine Occult Blood Negative Urine Nitrate Negative Urine Bilirubin Negative Urine Urobilinogen 0.2 Ur Leukocyte Esterase 1+ H Urine RBC 0-1/hpf Urine WBC 5-10/hpf H Ur Squamous Epith Cells 0-1 /hpf Urine Bacteria Few (2-10) H Ur Culture Indicated? Specimen cultured SARS-CoV-2 (PCR) Negative Influenza A (RT-PCR) Flu a negative Influenza B (RT-PCR) Flu b negative PFSH Medical History History of broken collarbone History of anxiety Pre-diabetes History of asthma History of fibromyalgia History of spinal stenosis Spondylolisthesis History of high cholesterol GERD (gastroesophageal reflux disease) Depression Surgical History History of surgery History of lateral meniscus repair of left knee History of foot surgery History of bilateral carpal tunnel release History of cervical spinal surgery Social History household members: spouse Smoking Status: Never smoker alcohol intake: current Discharge Assessment & Plan Assessment and Plan Assessment: Patient progressing as expected status post lumbar fusion Plan of Treatment: Multimodal pain management Weight-bearing as tolerated, limit bending, twisting, lifting Discharge home today in stable condition. Discharge Plan Discharge orders & Medications Discharge Orders: Discharge (Order); Ordered 12/06/22 Ordered By: Cole Liang Prescriptions: New acetaminophen 325 mg Tablet 650 mg PO Q6H PRN (Reason: Fever/Mild Pain (1-3)) Qty: 60 0RF polyethylene glycol 3350 17 gram Powder In Packet 17 g PO DAILY PRN (Reason: Constipation) Qty: 14 0RF hydroxyzine pamoate 25 mg Capsule 25 mg PO Q4HR PRN (Reason: Nausea And Vomiting) Qty: 30 0RF oxycodone 10 mg Tablet 10 mg PO Q3H PRN (Reason: Pain, Severe (7-10)) Qty: 45 0RF Continued calcium carbonate [Tums E-X] 300 mg (750 mg) Tablet,Chewable 600 mg PO TID PRN (Reason: Acid Reflux) omeprazole 40 mg Capsule,Delayed Release(Dr/Ec) 40 mg PO DAILY gabapentin 300 mg Capsule 600 mg PO TID lorazepam 1 mg Tablet 1 mg PO BID Rx Instructions: 1 mg in am 2 mg in PM rosuvastatin 10 mg Tablet 20 mg PO DAILY bupropion HCl 150 mg Tablet Extended Release 24 Hr 300 mg PO QAM ivermectin 1 % Cream 1 applic TOPICAL DAILY Rx Instructions: pea size amount to cover areas of the face avoid eyes and lips citalopram 20 mg Tablet 30 mg PO DAILY Rx Instructions: 1 1/2 tabs daily fluticasone propion-salmeterol [Advair Diskus] 250-50 mcg/dose Blister With Device 1 inh INHALATION DAILY albuterol sulfate 90 mcg/actuation Hfa Aerosol Inhaler 1 inh INHALATION QID PRN (Reason: Shortness Of Breath) Discontinued tramadol 50 mg Tablet 50 mg PO Q6H PRN (Reason: pain) acetaminophen [Tylenol Ex Str Rapid Release] 500 mg Tablet 1,000 mg PO TID PRN (Reason: pain) acetaminophen [Tylenol Arthritis] 650 mg Tablet Extended Release 1,300 mg PO Q8H Follow up/Referrals: Negro Grier MD [Primary Care Provider] - Raghavendra Giron MD [Physician] - As previously scheduled (Follow up w/ Tee Bains PA-C, on 12/18/2022 @ 1:00 pm at [facility] in [place].) Diet/Activity/Treatments Diet: Diet as Tolerated Activity: No deep bending or twisting at the waist. No lifting more than 10 pounds. Cold/Heat Therapy: Heating pad to low back as needed for pain. Skin/Wound/Dressing Care Report to your healthcare provider any signs of infection, such as:: chills, fever, night sweats, unusual drainage and unusual redness Dressing: May shower. Keep dressing as dry as possible. If dressing becomes wet or dirty, may remove and replace with clean, dry gauze. No bathing or otherwise soaking incisions. Do not apply any creams, lotions, or ointments to incisions. Visit Report/Discharge Packet Instructions: DI for Prescription Opioid Use, DI for Transforaminal Lumbar Interbody Fusion Stand Alone Forms: Patient Portal/API, Stroke Signs & Symptoms, Surgery Discharge Discharge Data Primary Care Provider: Negro Grier
[2022-12-06] MEDS: TRAMADOL 50 MG TABLET PO ×2 (10:46→22:45)
[2022-12-06] MEDS: hydrOXYzine pamoate 25 MG CAPSULE PO ×2 (10:46→22:45)
--- NOTE | 2022-12-06 11:40 | PT.IPTN ---
Current Diagnoses Spondylolisthesis, lumbar region (12/04/22) Spinal stenosis, lumbar region with neurogenic claudication (12/04/22) Arthrodesis status (12/04/22) Surgery Performed Operation Date: 12/04/22 08:45 Actual Procedures p L3-4, L4-5 TLIF with posterior instrumentation-Robot - Raghavendra Giron MD Physical Therapy Treatment Note M2 PT-IP Current Condition Start: 12/04/22 16:54 Freq: NEEDED Status: Active Protocol: Document 12/06/22 10:52 SP (Rec: 12/06/22 13:25 SP [id number]) Physical Therapy Current Condition Current Condition Evaluation Date 12/04/22 Treatment Diagnosis s/p L3-L5 TLIF Onset Date 12/04/22 M3 PT-IP Subjective Start: 12/04/22 16:54 Freq: NEEDED Status: Active Protocol: Document 12/06/22 10:52 SP (Rec: 12/06/22 13:25 SP [id number]) Subjective Physical Therapy Visit Type Type Treatment Note Visit Start Time 10:52 Visit Stop Time 11:40 Total Visit Minutes 48 Notes in room, continued CGT including support bed mob, transfers, gait w/ FWW and started 3 stair mgt RHR. Vitals (pt flush 99 deg temp, notified nursing, aware): SINARenee sup: BP 102/54 HR 78 standin/60 HR 87 post mobility supine in bed: 111/57 HR 82 Pt face palor end tx. Number of SENIOR OFFICER Visits 3 Physical Therapy Visit Comments Patient Comments Pt agreeable to working with PT and trial stair mgt. Patient Goals Pt wanting to return home with assist her. Therapy Pain Assessment Pain When Pain Assessed At Rest Pain Present Pain Present Pain Reported Location Back Intensity 7 Scale Used at rest post mobiltiy, 8-9/10 with mobility Description Pressure,Tender,With Movement Pain Behaviors Facial Grimacing,Guarding, Wincing Pain Management Techniques Distraction,Elevation, Modification of Treatment,Re- positioning,Timing of Activity with Medications M4 PT-IP Mobility and Gait Start: 12/04/22 16:54 Freq: NEEDED Status: Active Protocol: Document 12/06/22 10:52 SP (Rec: 12/06/22 13:25 SP [id number]) PT-Bed Mobility Assessment Rolling Type of Rolling Log Rolling,Bilateral Level of Assist Standby Assistance,Contact Guard Assistance Supine to Sit Supine to Sit Moderate Assistance,1 Person Assistance,Bedrails Sit to Supine Sit to Supine Moderate Assistance,1 Person Assistance,Bedrails Scooting Scooting to Edge of Bed Minimal Assistance,Moderate Assistance,Maximum Assistance PT-Transfer Assessment Sit to and From Stand Sit to and from Stand Standby Assistance,Contact Guard Assistance,1 Person Assistance,Use of Upper Extremities Equipment Transfer Assistive Device Gait Belt,Front Wheeled Walker Orthotic/Prosthetic Devices or Brace: No Transfers Transfer Destination Bed,Wheelchair Transfer Technique pt ambulate w/ FWW Transfer Ability Level of Assist Contact Guard Assistance Comments Mobility Comments Pt performed BLE heel slides pre mobility, RLE not as strong pacing. SBA w/ heavy use bed rail LR L, L SL>sit Mod A trunk righting support. Scoot to EOB extra time to mobilize heavy BUE CGA/SBA. STS from EOB Min A, heavily BUE WB on FWW/bed, cues TKE due to BLE R>LLE weakness. Wt shifts then gait w/ FWW small base stride to wc in hallway, cues reach back slow descend sit CGA. Wheeled to stairs. Pt side step BUE on R HR (set up home) LLE leading Min A x1, almost buckled, cued TKE on LLE until RLE on step w/ increased Max A 1-2 via gait belt/post R hip, brief stand rest bottom step, completed step to 2 more steps asc/ descend 3 step with Max cues from for sequencing each LE, keep eyes open ( closes to focus). Pt returned to w/c due to increase report pain increase and not feeling well. Pt wheeled back to room, STS Max A x1 SPT to bed. Mod A for BLEs onto bed sit>L SL> supine, heavy use bed rail to maintain SL before log roll w/ cues from . SENIOR OFFICER eduation on core fac to allow spinal bracing alignment. SENIOR OFFICER discussed pt making but slow to progress with pain not controlled during mobility. SENIOR OFFICER discussed option of SNF to progress strength befroe returning home. Gait Assessment Gait Gait Assistance Required: Contact Guard Assist,1 Person Assist Distance (Feet) 30 Able to Maintain Weight Bearing Status Yes During Gait Assistive Devices Assistive Device Gait Belt,Front Wheeled Walker Orthotic/Prosthetic Devices or Brace: No Gait Deviations General Gait Pattern Decreased Stride Length, Decreased Feet Clearance, Narrow Based Gait Factors Limiting Gait Function Factors Limiting Gait Function Decreased Activity Tolerance, Decreased Strength,Limited Range of Motion,Pain,Poor Safety Awareness Comments Gait Comments see mobilty comments Stair Climbing Assessment Evaluation Level of Assist On Stairs Moderate Assistance,Maximal Assistance,1 Person Assistance Devices Stair Climbing Assistive Devices Right Railing Technique/Endurance Stair Climbing Direction Ascend and Descend Stair Climbing Technique Step to Step Number of Steps Climbed 3 Stair Climbing Set # Repetitions (reps) 1 Comments Stair Climbing Comments See mobility comments, able complete 3 stairs RHR but at home also has 3 platform steps need to navigate as well consecutively. PT-Balance Assessment Sitting Balance and Reactions Static Sitting Balance Ability Good Dynamic Sitting Balance Ability Good Standing Balance and Reactions Static Standing Balance Ability Fair Dynamic Standing Balance Ability Fair Device Used FWW M5 PT-IP Objective Assessments Start: 12/04/22 16:54 Freq: NEEDED Status: Active Protocol: Document 12/04/22 16:54 ED (Rec: 12/04/22 17:13 ED [id number]) Orientation Orientation/Cognition Level of Alertness Lethargic Orientation Name,Date,Place,Situation Language Function Ability No Deficits Noted Safety Awareness Understands Safety Issues Memory Description No Deficits Noted Gross Range of Motion Upper Extremity ROM Assessment Within Functional Limits Lower Extremity ROM Assessment Within Functional Limits Strength Upper Extremity Strength Assessment Within Functional Limits Lower Extremity Strength Assessment Within Functional Limits Comments Strength Comments able to move LEs through full ROM in bed c/o assistance Coordination Assessment Gross Coordination Gross Coordination WNL Sensation Assessment Sensation Gross Sensation WNL Muscle Tone Muscle Tone WNL Yes M6 PT-IP Treatment Start: 12/04/22 16:54 Freq: NEEDED Status: Active Protocol: Document 12/06/22 10:52 SP (Rec: 12/06/22 13:25 SP [id number]) Physical Therapy Treatment Exercises Exercises Ankle Pumps,Heel Slides Education Education Provided Precautions,Safety Equipment Issued Equipment Type and Company acquired: 4ww, fww, BSC. M7 PT-IP Assessment and Plan Start: 12/04/22 16:54 Freq: NEEDED Status: Active Protocol: Document 12/06/22 10:52 SP (Rec: 12/06/22 13:25 SP [id number]) PT Summary Assessment and Plan Potential Rehabilitation Potential Good Status of Condition at Evaluation Stable Summary Impairments Pain,Strength,Balance,Bed Mobility,Transfers,Gait, Activity Tolerance Progress Towards Goals Slow Progress due to Pain,Slow Progress due to Medical Issues,Slow Progress due to Activity Tolerance Assessment Summary Pt slow progression due to decreased pain control, decreased strength and activitytolerance. Mod A bed mob, Min/Max STS, gait CGA with FWW. INcrease time to mobilize due to pain and activitiy tolerance. Temp 99 deg. see vital. REcommend SNF vs 23/09 HHPT. Will continue to assess progress. Goals Bed Mobility Goal Standby Assistance Transfer Goal Standby Assistance Gait Goal Standby Assistance Gait Distance 75 feet using FWW SBA Other Goals negotiate 6 steps using single railing CGA - min A Days to Meet Goals 3 Frequency of Treatment Frequency Of Treatment Twice a Day Treatment Plan Physical Therapy Treatment Plan Bed Mobility Training,Transfer Training,Gait Training, Therapeutic Exercise,Post Op Education,Discharge Planning, Neuromuscular Re-ed Other Recommendations and Next Treatment bed mob, transfers, check Focus vitals, gait further distance, 3 platform steps. Precautions Lumbar Precautions Log Roll,No Twisting,Limit Bending,Lifting Restriction of 10 lbs,Gait Belt above Incisional Area Other Precautions Recalled 3/3 precautions Weight Bearing Status Weight Bearing Status Full Weight Bearing Recommendations To Nursing Amount of Assist Needed 1 Person Assist Discharge Recommendations PT Discharge Recommendations Home with 23/09 Assist Available,Home Health Equipment Needed for Home Before acquired: 4ww, fww, Discharge BSC. Transportation Needs at Discharge Private Vehicle,Wheelchair/ Cabulance
--- NOTE | 2022-12-06 11:40 | PT.IPTN ---
Current Diagnoses Spondylolisthesis, lumbar region (12/04/22) Spinal stenosis, lumbar region with neurogenic claudication (12/04/22) Arthrodesis status (12/04/22) Surgery Performed Operation Date: 12/04/22 08:45 Actual Procedures p L3-4, L4-5 TLIF with posterior instrumentation-Robot - Raghavendra Giron MD Physical Therapy Treatment Note M2 PT-IP Current Condition Start: 12/04/22 16:54 Freq: NEEDED Status: Active Protocol: Document 12/06/22 10:52 SP (Rec: 12/06/22 13:25 SP [id number]) Physical Therapy Current Condition Current Condition Evaluation Date 12/04/22 Treatment Diagnosis s/p L3-L5 TLIF Onset Date 12/04/22 M3 PT-IP Subjective Start: 12/04/22 16:54 Freq: NEEDED Status: Active Protocol: Document 12/06/22 10:52 SP (Rec: 12/06/22 13:25 SP [id number]) Subjective Physical Therapy Visit Type Type Treatment Note Visit Start Time 10:52 Visit Stop Time 11:40 Total Visit Minutes 48 Notes in room, continued CGT including support bed mob, transfers, gait w/ FWW and started 3 stair mgt RHR. Vitals (pt flush 99 deg temp, notified nursing, aware): SINARenee sup: BP 102/54 HR 78 standin/60 HR 87 post mobility supine in bed: 111/57 HR 82 Pt face palor end tx. Number of CONTINUOUS IMPROVEMENT COORDINATOR Visits 3 Physical Therapy Visit Comments Patient Comments Pt agreeable to working with PT and trial stair mgt. Patient Goals Pt wanting to return home with assist her. Therapy Pain Assessment Pain When Pain Assessed At Rest Pain Present Pain Present Pain Reported Location Back Intensity 7 Scale Used at rest post mobiltiy, 8-9/10 with mobility Description Pressure,Tender,With Movement Pain Behaviors Facial Grimacing,Guarding, Wincing Pain Management Techniques Distraction,Elevation, Modification of Treatment,Re- positioning,Timing of Activity with Medications M4 PT-IP Mobility and Gait Start: 12/04/22 16:54 Freq: NEEDED Status: Active Protocol: Document 12/06/22 10:52 SP (Rec: 12/06/22 13:25 SP [id number]) PT-Bed Mobility Assessment Rolling Type of Rolling Log Rolling,Bilateral Level of Assist Standby Assistance,Contact Guard Assistance Supine to Sit Supine to Sit Moderate Assistance,1 Person Assistance,Bedrails Sit to Supine Sit to Supine Moderate Assistance,1 Person Assistance,Bedrails Scooting Scooting to Edge of Bed Minimal Assistance,Moderate Assistance,Maximum Assistance PT-Transfer Assessment Sit to and From Stand Sit to and from Stand Standby Assistance,Contact Guard Assistance,1 Person Assistance,Use of Upper Extremities Equipment Transfer Assistive Device Gait Belt,Front Wheeled Walker Orthotic/Prosthetic Devices or Brace: No Transfers Transfer Destination Bed,Wheelchair Transfer Technique pt ambulate w/ FWW Transfer Ability Level of Assist Contact Guard Assistance Comments Mobility Comments Pt performed BLE heel slides pre mobility, RLE not as strong pacing. SBA w/ heavy use bed rail LR L, L SL>sit Mod A trunk righting support. Scoot to EOB extra time to mobilize heavy BUE CGA/SBA. STS from EOB Min A, heavily BUE WB on FWW/bed, cues TKE due to BLE R>LLE weakness. Wt shifts then gait w/ FWW small base stride to wc in hallway, cues reach back slow descend sit CGA. Wheeled to stairs. Pt side step BUE on R HR (set up home) LLE leading Min A x1, almost buckled, cued TKE on LLE until RLE on step w/ increased Max A 1-2 via gait belt/post R hip, brief stand rest bottom step, completed step to 2 more steps asc/ descend 3 step with Max cues from for sequencing each LE, keep eyes open ( closes to focus). Pt returned to w/c due to increase report pain increase and not feeling well. Pt wheeled back to room, STS Max A x1 SPT to bed. Mod A for BLEs onto bed sit>L SL> supine, heavy use bed rail to maintain SL before log roll w/ cues from . CONTINUOUS IMPROVEMENT COORDINATOR eduation on core fac to allow spinal bracing alignment. CONTINUOUS IMPROVEMENT COORDINATOR discussed pt making but slow to progress with pain not controlled during mobility. CONTINUOUS IMPROVEMENT COORDINATOR discussed option of SNF to progress strength befroe returning home. Gait Assessment Gait Gait Assistance Required: Contact Guard Assist,1 Person Assist Distance (Feet) 30 Able to Maintain Weight Bearing Status Yes During Gait Assistive Devices Assistive Device Gait Belt,Front Wheeled Walker Orthotic/Prosthetic Devices or Brace: No Gait Deviations General Gait Pattern Decreased Stride Length, Decreased Feet Clearance, Narrow Based Gait Factors Limiting Gait Function Factors Limiting Gait Function Decreased Activity Tolerance, Decreased Strength,Limited Range of Motion,Pain,Poor Safety Awareness Comments Gait Comments see mobilty comments Stair Climbing Assessment Evaluation Level of Assist On Stairs Moderate Assistance,Maximal Assistance,1 Person Assistance Devices Stair Climbing Assistive Devices Right Railing Technique/Endurance Stair Climbing Direction Ascend and Descend Stair Climbing Technique Step to Step Number of Steps Climbed 3 Stair Climbing Set # Repetitions (reps) 1 Comments Stair Climbing Comments See mobility comments, able complete 3 stairs RHR but at home also has 3 platform steps need to navigate as well consecutively. PT-Balance Assessment Sitting Balance and Reactions Static Sitting Balance Ability Good Dynamic Sitting Balance Ability Good Standing Balance and Reactions Static Standing Balance Ability Fair Dynamic Standing Balance Ability Fair Device Used FWW M5 PT-IP Objective Assessments Start: 12/04/22 16:54 Freq: NEEDED Status: Active Protocol: Document 12/04/22 16:54 ED (Rec: 12/04/22 17:13 ED [id number]) Orientation Orientation/Cognition Level of Alertness Lethargic Orientation Name,Date,Place,Situation Language Function Ability No Deficits Noted Safety Awareness Understands Safety Issues Memory Description No Deficits Noted Gross Range of Motion Upper Extremity ROM Assessment Within Functional Limits Lower Extremity ROM Assessment Within Functional Limits Strength Upper Extremity Strength Assessment Within Functional Limits Lower Extremity Strength Assessment Within Functional Limits Comments Strength Comments able to move LEs through full ROM in bed c/o assistance Coordination Assessment Gross Coordination Gross Coordination WNL Sensation Assessment Sensation Gross Sensation WNL Muscle Tone Muscle Tone WNL Yes M6 PT-IP Treatment Start: 12/04/22 16:54 Freq: NEEDED Status: Active Protocol: Document 12/06/22 10:52 SP (Rec: 12/06/22 13:25 SP [id number]) Physical Therapy Treatment Exercises Exercises Ankle Pumps,Heel Slides Education Education Provided Precautions,Safety Equipment Issued Equipment Type and Company acquired: 4ww, fww, BSC. M7 PT-IP Assessment and Plan Start: 12/04/22 16:54 Freq: NEEDED Status: Active Protocol: Document 12/06/22 10:52 SP (Rec: 12/06/22 13:25 SP [id number]) PT Summary Assessment and Plan Potential Rehabilitation Potential Good Status of Condition at Evaluation Stable Summary Impairments Pain,Strength,Balance,Bed Mobility,Transfers,Gait, Activity Tolerance Progress Towards Goals Slow Progress due to Pain,Slow Progress due to Medical Issues,Slow Progress due to Activity Tolerance Assessment Summary Pt slow progression due to decreased pain control, decreased strength and activitytolerance. Mod A bed mob, Min/Max STS, gait CGA with FWW. INcrease time to mobilize due to pain and activitiy tolerance. Temp 99 deg. see vital. REcommend SNF vs 23/09 HHPT. Will continue to assess progress. Goals Bed Mobility Goal Standby Assistance Transfer Goal Standby Assistance Gait Goal Standby Assistance Gait Distance 75 feet using FWW SBA Other Goals negotiate 6 steps using single railing CGA - min A Days to Meet Goals 3 Frequency of Treatment Frequency Of Treatment Twice a Day Treatment Plan Physical Therapy Treatment Plan Bed Mobility Training,Transfer Training,Gait Training, Therapeutic Exercise,Post Op Education,Discharge Planning, Neuromuscular Re-ed Other Recommendations and Next Treatment bed mob, transfers, check Focus vitals, gait further distance, 3 platform steps. Precautions Lumbar Precautions Log Roll,No Twisting,Limit Bending,Lifting Restriction of 10 lbs,Gait Belt above Incisional Area Other Precautions Recalled 3/3 precautions Weight Bearing Status Weight Bearing Status Full Weight Bearing Recommendations To Nursing Amount of Assist Needed 1 Person Assist Discharge Recommendations PT Discharge Recommendations Home with 23/09 Assist Available,Home Health,SNF Rehab,Home vs SNF Equipment Needed for Home Before acquired: 4ww, fww, Discharge [facility]SC. Transportation Needs at Discharge Private Vehicle,Wheelchair/ Cabulance
--- NOTE | 2022-12-06 13:56 | CM.DPC ---
DCP Cont. Pain management is primary focus at this time. D/C recommendations are for SNF. Placed call to Alejandra at [facility] to see if we can get an auth. Pain is still very acute (12/10), mobility limited. Sent referral and clinicalls to [facility], pending. Partially completed PASSAR. Monitor for Sat progress w/therapies and plan. Otherwise, home with OP f/u with Dr. Giron.
--- NOTE | 2022-12-06 14:20 | PT.IPTN ---
Current Diagnoses Spondylolisthesis, lumbar region (12/04/22) Spinal stenosis, lumbar region with neurogenic claudication (12/04/22) Arthrodesis status (12/04/22) Surgery Performed Operation Date: 12/04/22 08:45 Actual Procedures p L3-4, L4-5 TLIF with posterior instrumentation-Robot - Raghavendra Giron MD Physical Therapy Treatment Note M2 PT-IP Current Condition Start: 12/04/22 16:54 Freq: NEEDED Status: Active Protocol: Document 12/06/22 13:40 DCW (Rec: 12/06/22 15:27 DCW [id number]) Physical Therapy Current Condition Current Condition Evaluation Date 12/04/22 Treatment Diagnosis s/p L3-L5 TLIF Onset Date 12/04/22 M3 PT-IP Subjective Start: 12/04/22 16:54 Freq: NEEDED Status: Active Protocol: Document 12/06/22 13:40 DCW (Rec: 12/06/22 15:27 DCW [id number]) Subjective Physical Therapy Visit Type Visit Start Time 13:40 Visit Stop Time 14:20 Total Visit Minutes 40 Notes in room when therapist entered. Pt admits she is okay resting (reports 5/10 pain at rest), but crummy when trying to move. Agreeable to attempt stairs again due to desire to go home instead of SNF. Number of PRODUCT SAFETY PROFESSIONAL Visits 0 Physical Therapy Visit Comments Patient Comments This is just miserable. Patient Goals Pt wanting to return home with assist her. Therapy Pain Assessment Pain When Pain Assessed At Rest Pain Present Pain Present Pain Reported Location Back Intensity 5 Scale Used Numeric (0 - 10) M4 PT-IP Mobility and Gait Start: 12/04/22 16:54 Freq: NEEDED Status: Active Protocol: Document 12/06/22 13:40 DCW (Rec: 12/06/22 15:27 DCW [id number]) PT-Bed Mobility Assessment Rolling Type of Rolling Log Rolling,Roll to Right Level of Assist Standby Assistance Supine to Sit Supine to Sit Minimal Assistance,1 Person Assistance,Bedrails Scooting Scooting to Edge of Bed Standby Assistance,Contact Guard Assistance PT-Transfer Assessment Sit to and From Stand Sit to and from Stand Moderate Assistance,1 Person Assistance,Use of Upper Extremities Equipment Transfer Assistive Device Gait Belt,Front Wheeled Walker Orthotic/Prosthetic Devices or Brace: No Transfers Transfer Destination Bed,Wheelchair Transfer Technique pt ambulate w/ FWW Transfer Ability Level of Assist Contact Guard Assistance Comments Mobility Comments Improved ability to perform log roll to right side vs left . Min A side-lying->sitting, required BOBBIN WINDER TENDER on left hand to help get into sitting EOB. Pt very fatigued following bed mobility. Sit<->Stand from wheelchair required Mod Ax1, verbal cues for hand placement . Pt did respond well to verbal cues of leaning back to scoot bottom forward in chair . Gait Assessment Gait Gait Assistance Required: Contact Guard Assist,1 Person Assist Distance (Feet) 15 Assistive Devices Assistive Device Gait Belt,Front Wheeled Walker Orthotic/Prosthetic Devices or Brace: No Gait Deviations General Gait Pattern Decreased Stride Length, Decreased Feet Clearance, Narrow Based Gait Factors Limiting Gait Function Factors Limiting Gait Function Decreased Activity Tolerance, Decreased Strength,Limited Range of Motion,Pain,Poor Safety Awareness Comments Gait Comments After returning to room following stair attempt, pt reported need to use rest room . Pt ambulated from entrance of room to toilet CGA x1 using FWW Stair Climbing Assessment Evaluation Level of Assist On Stairs Moderate Assistance,Maximal Assistance,1 Person Assistance Devices Stair Climbing Assistive Devices Right Railing Technique/Endurance Stair Climbing Direction Ascend and Descend Stair Climbing Technique Step to Step Number of Steps Climbed 3 Stair Climbing Set # Repetitions (reps) 1 Comments Stair Climbing Comments Once again wheeled to stairs. Performed first in order to try before becoming too fatigued. Pt using both UEs on R ascending rail, step-to gait pattern. Pt ascended/ descended 3 steps Min Ax1, did have 3 self-corrected instances of right knee nearly buckling. Pt took standing rest break after each stair ascended and descended. Too fatigued to attempt platform steps. PT-Balance Assessment Sitting Balance and Reactions Static Sitting Balance Ability Good Dynamic Sitting Balance Ability Good Standing Balance and Reactions Static Standing Balance Ability Fair Dynamic Standing Balance Ability Fair Device Used FWW M5 PT-IP Objective Assessments Start: 12/04/22 16:54 Freq: NEEDED Status: Active Protocol: Document 12/04/22 16:54 ED (Rec: 12/04/22 17:13 ED [id number]) Orientation Orientation/Cognition Level of Alertness Lethargic Orientation Name,Date,Place,Situation Language Function Ability No Deficits Noted Safety Awareness Understands Safety Issues Memory Description No Deficits Noted Gross Range of Motion Upper Extremity ROM Assessment Within Functional Limits Lower Extremity ROM Assessment Within Functional Limits Strength Upper Extremity Strength Assessment Within Functional Limits Lower Extremity Strength Assessment Within Functional Limits Comments Strength Comments able to move LEs through full ROM in bed c/o assistance Coordination Assessment Gross Coordination Gross Coordination WNL Sensation Assessment Sensation Gross Sensation WNL Muscle Tone Muscle Tone WNL Yes M6 PT-IP Treatment Start: 12/04/22 16:54 Freq: NEEDED Status: Active Protocol: Document 12/06/22 10:52 SP (Rec: 12/06/22 13:25 SP [id number]) Physical Therapy Treatment Exercises Exercises Ankle Pumps,Heel Slides Education Education Provided Precautions,Safety Equipment Issued Equipment Type and Company acquired: 4ww, fww, BSC. M7 PT-IP Assessment and Plan Start: 12/04/22 16:54 Freq: NEEDED Status: Active Protocol: Document 12/06/22 13:40 DCW (Rec: 12/06/22 15:27 DCW [id number]) PT Summary Assessment and Plan Potential Rehabilitation Potential Good Status of Condition at Evaluation Stable Summary Impairments Pain,Strength,Balance,Bed Mobility,Transfers,Gait, Activity Tolerance Progress Towards Goals Slow Progress due to Pain,Slow Progress due to Medical Issues,Slow Progress due to Activity Tolerance Assessment Summary Pt continues to exhibit very poor activity tolerance, significant difficulty with steps, at ths time not safe to perform required ascending of three stairs and then three platform steps to enter her home. Pt's in very helpful with verbal cues. Leg weakness and poor pain response greatly limiting pt's recovery at this time. Currently, pt would greatly benefit from discharge to SNF when medically cleared in order to improve strength, activity toelrance, gait, and balance to decrease falls risk and improved likelihood of eventual successful return home. Goals Bed Mobility Goal Standby Assistance Transfer Goal Standby Assistance Gait Goal Standby Assistance Gait Distance 75 feet using FWW SBA Other Goals negotiate 6 steps using single railing CGA - min A Days to Meet Goals 3 Frequency of Treatment Frequency Of Treatment Twice a Day Treatment Plan Physical Therapy Treatment Plan Bed Mobility Training,Transfer Training,Gait Training, Therapeutic Exercise,Post Op Education,Discharge Planning, Neuromuscular Re-ed Other Recommendations and Next Treatment bed mob, transfers, check Focus vitals, gait further distance, 3 platform steps. Precautions Lumbar Precautions Log Roll,No Twisting,Limit Bending,Lifting Restriction of 10 lbs,Gait Belt above Incisional Area Other Precautions Recalled 3/3 precautions Weight Bearing Status Weight Bearing Status Full Weight Bearing Recommendations To Nursing Amount of Assist Needed 1 Person Assist Discharge Recommendations PT Discharge Recommendations Home with 23/09 Assist Available,Home Health,SNF Rehab,Home vs SNF Equipment Needed for Home Before acquired: 4ww, fww, Discharge BSC. Transportation Needs at Discharge Private Vehicle,Wheelchair/ Cabulance
--- NOTE | 2022-12-06 14:20 | PT.IPTN ---
Current Diagnoses Spondylolisthesis, lumbar region (12/04/22) Spinal stenosis, lumbar region with neurogenic claudication (12/04/22) Arthrodesis status (12/04/22) Surgery Performed Operation Date: 12/04/22 08:45 Actual Procedures p L3-4, L4-5 TLIF with posterior instrumentation-Robot - Raghavendra Giron MD Physical Therapy Treatment Note M2 PT-IP Current Condition Start: 12/04/22 16:54 Freq: NEEDED Status: Active Protocol: Document 12/06/22 13:40 DCW (Rec: 12/06/22 15:27 DCW [id number]) Physical Therapy Current Condition Current Condition Evaluation Date 12/04/22 Treatment Diagnosis s/p L3-L5 TLIF Onset Date 12/04/22 M3 PT-IP Subjective Start: 12/04/22 16:54 Freq: NEEDED Status: Active Protocol: Document 12/06/22 13:40 DCW (Rec: 12/06/22 15:27 DCW [id number]) Subjective Physical Therapy Visit Type Visit Start Time 13:40 Visit Stop Time 14:20 Total Visit Minutes 40 Notes in room when therapist entered. Pt admits she is okay resting (reports 5/10 pain at rest), but crummy when trying to move. Agreeable to attempt stairs again due to desire to go home instead of SNF. Number of ADMINISTRATIVE RESIDENT Visits 0 Physical Therapy Visit Comments Patient Comments This is just miserable. Patient Goals Pt wanting to return home with assist her. Therapy Pain Assessment Pain When Pain Assessed At Rest Pain Present Pain Present Pain Reported Location Back Intensity 5 Scale Used Numeric (0 - 10) M4 PT-IP Mobility and Gait Start: 12/04/22 16:54 Freq: NEEDED Status: Active Protocol: Document 12/06/22 13:40 DCW (Rec: 12/06/22 15:27 DCW [id number]) PT-Bed Mobility Assessment Rolling Type of Rolling Log Rolling,Roll to Right Level of Assist Standby Assistance Supine to Sit Supine to Sit Minimal Assistance,1 Person Assistance,Bedrails Scooting Scooting to Edge of Bed Standby Assistance,Contact Guard Assistance PT-Transfer Assessment Sit to and From Stand Sit to and from Stand Moderate Assistance,1 Person Assistance,Use of Upper Extremities Equipment Transfer Assistive Device Gait Belt,Front Wheeled Walker Orthotic/Prosthetic Devices or Brace: No Transfers Transfer Destination Bed,Wheelchair Transfer Technique pt ambulate w/ FWW Transfer Ability Level of Assist Contact Guard Assistance Comments Mobility Comments Improved ability to perform log roll to right side vs left . Min A side-lying->sitting, required YOUTH WORKER on left hand to help get into sitting EOB. Pt very fatigued following bed mobility. Sit<->Stand from wheelchair required Mod Ax1, verbal cues for hand placement . Pt did respond well to verbal cues of leaning back to scoot bottom forward in chair . Gait Assessment Gait Gait Assistance Required: Contact Guard Assist,1 Person Assist Distance (Feet) 15 Assistive Devices Assistive Device Gait Belt,Front Wheeled Walker Orthotic/Prosthetic Devices or Brace: No Gait Deviations General Gait Pattern Decreased Stride Length, Decreased Feet Clearance, Narrow Based Gait Factors Limiting Gait Function Factors Limiting Gait Function Decreased Activity Tolerance, Decreased Strength,Limited Range of Motion,Pain,Poor Safety Awareness Comments Gait Comments After returning to room following stair attempt, pt reported need to use rest room . Pt ambulated from entrance of room to toilet CGA x1 using FWW Stair Climbing Assessment Evaluation Level of Assist On Stairs Moderate Assistance,Maximal Assistance,1 Person Assistance Devices Stair Climbing Assistive Devices Right Railing Technique/Endurance Stair Climbing Direction Ascend and Descend Stair Climbing Technique Step to Step Number of Steps Climbed 3 Stair Climbing Set # Repetitions (reps) 1 Comments Stair Climbing Comments Once again wheeled to stairs. Performed first in order to try before becoming too fatigued. Pt using both UEs on R ascending rail, step-to gait pattern. Pt ascended/ descended 3 steps Min Ax1, did have 3 self-corrected instances of right knee nearly buckling. Pt took standing rest break after each stair ascended and descended. Too fatigued to attempt platform steps. PT-Balance Assessment Sitting Balance and Reactions Static Sitting Balance Ability Good Dynamic Sitting Balance Ability Good Standing Balance and Reactions Static Standing Balance Ability Fair Dynamic Standing Balance Ability Fair Device Used FWW M5 PT-IP Objective Assessments Start: 12/04/22 16:54 Freq: NEEDED Status: Active Protocol: Document 12/04/22 16:54 ED (Rec: 12/04/22 17:13 ED [id number]) Orientation Orientation/Cognition Level of Alertness Lethargic Orientation Name,Date,Place,Situation Language Function Ability No Deficits Noted Safety Awareness Understands Safety Issues Memory Description No Deficits Noted Gross Range of Motion Upper Extremity ROM Assessment Within Functional Limits Lower Extremity ROM Assessment Within Functional Limits Strength Upper Extremity Strength Assessment Within Functional Limits Lower Extremity Strength Assessment Within Functional Limits Comments Strength Comments able to move LEs through full ROM in bed c/o assistance Coordination Assessment Gross Coordination Gross Coordination WNL Sensation Assessment Sensation Gross Sensation WNL Muscle Tone Muscle Tone WNL Yes M6 PT-IP Treatment Start: 12/04/22 16:54 Freq: NEEDED Status: Active Protocol: Document 12/06/22 10:52 SP (Rec: 12/06/22 13:25 SP [id number]) Physical Therapy Treatment Exercises Exercises Ankle Pumps,Heel Slides Education Education Provided Precautions,Safety Equipment Issued Equipment Type and Company acquired: 4ww, fww, BSC. M7 PT-IP Assessment and Plan Start: 12/04/22 16:54 Freq: NEEDED Status: Active Protocol: Document 12/06/22 13:40 DCW (Rec: 12/06/22 15:27 DCW [id number]) PT Summary Assessment and Plan Potential Rehabilitation Potential Good Status of Condition at Evaluation Stable Summary Impairments Pain,Strength,Balance,Bed Mobility,Transfers,Gait, Activity Tolerance Progress Towards Goals Slow Progress due to Pain,Slow Progress due to Medical Issues,Slow Progress due to Activity Tolerance Assessment Summary Pt continues to exhibit very poor activity tolerance, significant difficulty with steps, at ths time not safe to perform required ascending of three stairs and then three platform steps to enter her home. Pt's in very helpful with verbal cues. Leg weakness and poor pain response greatly limiting pt's recovery at this time. Currently, pt would greatly benefit from discharge to SNF when medically cleared in order to improve strength, activity tolerance, gait, and balance to decrease falls risk and improved likelihood of eventual successful return home. At end of session, pt requested use of restroom. Pt patient and her , has been getting her to and from restroom. Therapist assisted gait from room entrance to restroom. Pt comfortable on toilet with assistance. Nurse entered at end of session for pain meds, was informed of pt location. Goals Bed Mobility Goal Standby Assistance Transfer Goal Standby Assistance Gait Goal Standby Assistance Gait Distance 75 feet using FWW SBA Other Goals negotiate 6 steps using single railing CGA - min A Days to Meet Goals 3 Frequency of Treatment Frequency Of Treatment Twice a Day Treatment Plan Physical Therapy Treatment Plan Bed Mobility Training,Transfer Training,Gait Training, Therapeutic Exercise,Post Op Education,Discharge Planning, Neuromuscular Re-ed Other Recommendations and Next Treatment bed mob, transfers, check Focus vitals, gait further distance, 3 platform steps. Precautions Lumbar Precautions Log Roll,No Twisting,Limit Bending,Lifting Restriction of 10 lbs,Gait Belt above Incisional Area Other Precautions Recalled 3/3 precautions Weight Bearing Status Weight Bearing Status Full Weight Bearing Recommendations To Nursing Amount of Assist Needed 1 Person Assist Discharge Recommendations PT Discharge Recommendations Home with 24 Assist Available,Home Health,SNF Rehab,Home vs SNF Equipment Needed for Home Before acquired: 4ww, fww, Discharge [facility]SC. Transportation Needs at Discharge Private Vehicle,Wheelchair/ Cabulance
--- NOTE | 2022-12-06 14:38 | OT.IP.TRT ---
Current Diagnoses Spondylolisthesis, lumbar region (12/04/22) Spinal stenosis, lumbar region with neurogenic claudication (12/04/22) Arthrodesis status (12/04/22) Surgery Performed Operation Date: 12/04/22 08:45 Actual Procedures p L3-4, L4-5 TLIF with posterior instrumentation-Robot - Raghavendra Giron MD Occupational Therapy Treatment Note M2 OT-IP Current Condition Start: 12/05/22 10:15 Freq: Status: Active Protocol: Document 12/05/22 09:40 [facility] (Rec: 12/05/22 10:30 [facility] [id number]) Occupational Therapy Current Condition Current Condition Evaluation Date 12/05/22 Treatment Diagnosis S/P L3-4, L4-5 TLIF Diagnosis Onset Date 12/04/22 Post Operative Precautions Lumbar Precautions Log Roll,No Twisting,Limit Bending,Lifting Restriction of 10 lbs,Gait Belt above Incisional Area M3 OT- IP Subjective and Pain Start: 12/05/22 10:15 Freq: Status: Active Protocol: Document 12/06/22 14:37 [facility] (Rec: 12/06/22 14:49 [facility] [id number]) OT- Subjective Occupational Therapy Visit Type Type Treatment Note Visit Start Time 14:20 Visit Stop Time 14:38 Total Visit Minutes 18 Occupational Therapy Visit Comments Patient Comments Pt having difficulty to urinate, nursing notified. Pt wanting to get back to bed. Patient/Caregiver Goals TO get better. OT Pain Assessment Pain When Pain Assessed During Mobility Pain Present Pain Present Pain Reported Location Back Pain Behaviors Facial Grimacing,Moaning, Wincing M4 OT- IP ADL's Start: 12/05/22 10:15 Freq: Status: Active Protocol: Document 12/06/22 14:37 [facility] (Rec: 12/06/22 14:49 [facility] [id number]) OT ADL-Toileting General Evaluation Toileting Ability Maximum Assistance Comments OT Toileting Comments Pt will need assist for hygiene and brief needs at this time. OT ADL-Bathing Comments OT Bathing Comments Not performed M5 OT- IP IADL's Start: 12/05/22 10:15 Freq: Status: Active Protocol: Document 12/05/22 09:40 [facility] (Rec: 12/05/22 10:30 [facility] [id number]) OT-Instrumental Activities of Daily Living Home Safety Awareness Awareness of Need for Assistance at Home Good Awareness Ability to Problem Solve Emergency Able to Problem Solve Situations Meal Preparation Meal Preparation Caregiver Provides Assist Medical Chemist Medical Chemist Caregiver Provides Assist M6 OT- IP Functional Cognition Start: 12/05/22 10:15 Freq: Status: Active Protocol: Document 12/06/22 14:37 [facility] (Rec: 12/06/22 14:49 [facility] [id number]) Cognitive Factors Limiting Selfcare Function Cognitive Comments Cognitive Assessment Comments Pt needing cues for log rolling. M7 OT- IP Mobility and Balance Start: 12/05/22 10:15 Freq: Status: Active Protocol: Document 12/06/22 14:37 [facility] (Rec: 12/06/22 14:49 [facility] [id number]) OT- Bed Mobility Assessment Sit to Supine Sit to Supine Assist Maximum Assistance OT-Transfer Assessment Sit to and From Stand Sit to and from Stand Moderate Assistance,Maximum Assistance Transfers Transfer Ability Minimal Assistance Technique Transfer Destination Bed,Toilet Devices Transfer Assistive Devices Gait Belt,Front Wheeled Walker Comments Mobility Comments Pt needing MOD/MAXA to stand to the FWW from the toilet and heavy use of the FWW for mobility and LUIS MANUEL from OT. MAX AX 1 to help get pt sidelying and assist with her legs back into bed. OT- Balance Assessment Sitting Balance and Reactions Static Sitting Balance Ability Good Dynamic Sitting Balance Ability Good Standing Balance and Reactions Static Standing Balance Ability Fair Dynamic Standing Balance Ability Fair M8 OT- IP Objective Assessments Start: 12/05/22 10:15 Freq: Status: Active Protocol: Document 12/05/22 09:40 [facility] (Rec: 12/05/22 10:30 [facility] [id number]) OT Gross Range of Motion Upper Extremity Range of Motion Assessment Within Functional Limits OT Strength Upper Extremity Strength Assessment Within Functional Limits OT-Muscle Tone Assessment Muscle Tone WNL Yes M9 OT- IP Assessment and Plan Start: 12/05/22 10:15 Freq: Status: Active Protocol: Document 12/06/22 14:37 [facility] (Rec: 12/06/22 14:49 [facility] [id number]) OT Summary Assessment and Plan Potential Rehabilitation Potential Good Analytic Complexity at Evaluation Low Summary OT Impairments Pain,Strength,Balance, Functional Mobility,Dressing, Toileting,Bathing,Toilet Transfers,Shower Transfers, Activity Tolerance Progress Towards Goals Slow Progress due to Pain,Slow Progress due to Activity Tolerance Assessment Summary Pt having more pain today and needing more assist to come to stand and for bed mobility and will benefit from skilled rehab. In addition pt has had 5-6 falls in the past month and will benefit from getting stronger and more steady on her feet prior to going home. Goals Grooming Goal Independent Dressing Goal Independent Toileting Goal Independent Bathing Goal Independent Toilet Transfer Goal Independent Shower Transfer Goal Independent Days to Meet Goals 20 Frequency of Treatment Frequency Of Treatment Once a Day Treatment Plan OT Treatment Plan ADL Training,Functional Mobility,Patient/Family Education,Discharge Planning Discharge Recommendations OT Discharge Recommendations SNF Rehab Transportation Needs at Discharge Wheelchair/Cabulance
[2022-12-06 15:47] VITALS: PULSE 70; RESP 18; O2SAT 97
--- NOTE | 2022-12-06 16:28 | PC.NURSE ---
Patient voiding this a.m. up to BR 500 cc. Later this afternoon she c/o of being unable to void with OT. Bladder scan results in 658ml. Patient straight cath results wer 1,100. Her PIV to her L hand was accidentally dc'd . EDUAR Liang notified, and ok to leave PIV out. If patient not able to void in [address] welch catheter.
[2022-12-06 19:46] VITALS: PULSE 68; O2SAT 95
[2022-12-06 20:51] VITALS: BP 126/70; PULSE 85; RESP 18; TEMP 37.5; O2SAT 95
[2022-12-06] MEDS: SENNOSIDES 8.6 MG TABLET 17.2 MG PO (21:01)
[2022-12-06] MEDS: BISACODYL 10 MG SUPP PR (21:07)
[2022-12-07] MEDS: OXYCODONE IR 10 MG TABLET PO ×3 (02:55→10:24)
[2022-12-07] MEDS: PANTOPRAZOLE DR 40 MG TABLET PO (06:23)
[2022-12-07] MEDS: ACETAMINOPHEN 325 MG TABLET 650 MG PO (06:23)
[2022-12-07 08:00] VITALS: BP 115/64; PULSE 74; RESP 18; TEMP 36.6; O2SAT 96
[2022-12-07] MEDS: buPROPion XL 150 MG TAB 300 MG PO (08:54)
[2022-12-07] MEDS: DOCUSATE 100 MG CAPSULE PO (08:54)
[2022-12-07] MEDS: ATORVASTATIN 20 MG TABLET PO (08:56)
[2022-12-07] MEDS: CITALOPRAM 10 MG TABLET 30 MG PO (08:56)
[2022-12-07] MEDS: GABAPENTIN 600 MG TABLET PO (08:56)
[2022-12-07] MEDS: LORazepam 1 MG TABLET PO (08:56)
--- NOTE | 2022-12-07 09:00 | PM.PNPO.1 ---
Subjective Subjective Date Patient Seen: 12/07/22 Time Patient Seen: 09:01 Interval history: Pt feeling much better today, both she and spouse are confident she can discharge home with his help. Exam Vital Signs (past 8 hours): - 12/07/22 08:00 Temperature 97.9 F Pulse Rate 74 Respiratory Rate 18 Blood Pressure 115/64 Pulse Oximetry 96 Oxygen Flow Rate 0 Fraction of Inspired Oxygen 21 SaO2/FiO2 Ratio 461 Oxygen Delivery Method Room Air Oxygen Flow Rate 0 Narrative Exam Narrative: 4/5 strength in hip flexors, quadriceps, hamstrings; 5/5 DF, PF, EHL bilaterally. Sensation to light touch intact in BLE. Calves soft, compressible, nontender and without palpable cords or masses. Dressing changed since surgery and is CDI. Objective Labs 12/05/22 05:25 PFS Medical History History of broken collarbone History of anxiety Pre-diabetes History of asthma History of fibromyalgia History of spinal stenosis Spondylolisthesis History of high cholesterol GERD (gastroesophageal reflux disease) Depression Surgical History History of surgery History of lateral meniscus repair of left knee History of foot surgery History of bilateral carpal tunnel release History of cervical spinal surgery Social History household members: spouse Smoking Status: Never smoker alcohol intake: current Assessment & Plan Post-op Assessment and plan (1) S/P lumbar fusion: Assessment and Plan narrative: Discharge home w/ spouse today. Postoperative Procedures: Procedures Operation Date: 12/04/22 08:45 Actual Procedure Side Surgeon p L3-4, L4-5 TLIF with posterior instrumentation-Robot Raghavendra Giron MD
[2022-12-07] MEDS: TRAMADOL 50 MG TABLET PO (09:04)
[2022-12-07] MEDS: BUDESONIDE 0.5 MG/2 ML NEB INH (10:05)
[2022-12-07] MEDS: ALBUTEROL 2.5 MG/3 ML NEB (ADULT) INH (10:05)
--- NOTE | 2022-12-07 10:17 | PC.NURSE ---
Pt med for discomfort w/relief. Orders for Discharge recieved, HL removed intact, Dsg to back changed w/anni dsg, Home instructions given w/understanding. Pt escorted by staff via w/C to waiting vehicle D/C in stable post op status.
== END 2022-12-07 11:00 | disposition home or self-care (01) | DRG 455 ==
PROVIDERS: Physician Assistant; Admitting Provider Orthopaedic Surgery Orthopaedic Surgery of the Spine; PCP Family Medicine; Referring Provider Family Medicine; Visit Provider Orthopaedic Surgery Orthopaedic Surgery of the Spine
PROC: 0SG10AJ Fusion of 2 or more Lumbar Vertebral Joints with Interbody Fusion Device, Posterior Approach, Anterior Column, Open Approach (ICD-10-PCS; principal; 2022-12-04 08:45)
DX: M43.16 Spondylolisthesis, lumbar region (principal); M48.062 Spinal stenosis, lumbar region with neurogenic claudication; K21.9 Gastro-esophageal reflux disease without esophagitis; F32.A Depression, unspecified
CPT/HCPCS: 72100; 76000; 81001; 85014; 85018; 87086; 87502; 87635; 94150; 94640; 94762; 97116; 97161; 97165; 97530; 97535; A9270; C1713; C1831; C9290; J0171; J0330; J1100; J1170; J2250; J2270; J2405; J2704; J7613